=== PATIENT | female | born 1925 | race Caucasian/White ===

== ENCOUNTER 2016-07-20 12:08 | Emergency (ER) | payer MEDICARE, OTHER ==
--- NOTE | 2016-07-20 13:29 | EDDOCDS ---
Nurse's Notes [facility] Name: Dahiana Pandey Age: 89 yrs Sex: Female : 1925 Arrival Date: 07/20/2016 Time: 12:08 Bed I10 / 23 Private MD: Tirso Dixon G. Diagnosis: Insomnia Presentation: 07/20 12:19 Presenting complaint: Patient states: Has chronic insomnia and takes Xanax for sleep. jo3 [facility] will not release prescription until Thursday and pt has not slept for past 2 nights. Adult Sepsis Screening: The patient does not have new or worsening altered mentation. Patient's respiratory rate is less than 22. Systolic blood pressure is greater than 100. Patient has a qSOFA score of 0- Negative Sepsis Screen. Suicide/Homicide risk assessment- the patient denies having any suicidal and/or homicidal ideations and does not present with any other emotional, behavioral or mental health complaints. Status: Patient is not a automotive service manager or dependent. Transition of care: patient was not received from another setting of care. 12:19 Acuity: SKYLAR Level 5 jo3 12:19 Method Of Arrival: Walkin/Carried/Asstd jo3 Triage Assessment: 12:23 General: Appears in no apparent distress, Behavior is appropriate for age, cooperative. jo3 Neurological: No deficits noted. Level of Consciousness is awake, alert, Oriented to person, place, time. Respiratory: Airway is patent Respiratory effort is even, unlabored. Derm: Skin is pink, warm & dry. Historical: - Allergies: Benadryl; Ciprofloxacin HCl; - Home Meds: 1. atenolol 25 mg Oral tab 12.5 mg 2. hydroxyzine HCl 25 mg Oral tab nightly 3. Remeron 30 mg Oral tab 1 tab once daily 4. trazodone 50 mg Oral tab nightly 5. Xanax 0.5 mg Oral tab nightly - PMHx: insomnia; Sleep Apnea w/o CPAP; svt; Hypertension; - PSHx: Cholecystectomy; knee surgery; - Social history: Smoking status: Patient states was never smoker of tobacco. No barriers to communication noted, The patient speaks fluent Palauan, Speaks appropriately for age. - Family history: Not pertinent. - : The pt / caregiver states he / she is not on anticoagulants. Home medication list is obtained from the patient. - Exposure Risk Screening:: None identified. Screenin:26 Screening information is obtained from the patient. Primary language is Palauan. Fall dls risk: No risks identified. Assistance ADL's: requires no assistance with activities of daily living. Abuse/DV Screen: The patient / caregiver reports he/she is: not in a situation that causes fear, pain or injury. Nutritional screening: No deficits noted. Advance Directives: Currently, there is no health care proxy. There is no active DNR order. There is no living will. There is no Power of Oil Field Laborer. Advance directive information has not previously been placed in an [facility] medical record. home support is adequate. Assessment: 13:25 General: Appears in no apparent distress, well developed, well nourished, well groomed, dls Behavior is cooperative. Pain: Denies pain. Awake, alert, oriented. Skin warm and dry. Moves all extremities. Bilateral breath sounds clear. Respirations unlabored. Abdomen soft, non-tender. No apparent distress. The patient / caregiver is instructed regarding the plan of care and ED course. Vital Signs: 12:11 BP 193 / 76 LA Sitting (auto/reg); Pulse 68 LA; Resp 18 S; Temp 97.5(O); Pulse Ox 99% mt4 on R/A; Weight 80.74 kg (R); Height 5 ft. 5 in. (165.10 cm) (R); Pain 0/10; 12:11 Body Mass Index 29.62 (80.74 kg, 165.10 cm) oh4 Vitals: 12:11 Log In Time: July 20, 2016 at 12:08. oh4 ED Course: 12:10 Patient visited by Trang Killian. mt4 12:10 Tirso Dixon is Private Physician. mt4 12:10 Patient moved to Waiting mt4 12:12 Patient moved to Pre RCE mt4 12:21 Triage Initiated jo3 12:24 Patient visited by January Hatfield RN. jo3 12:27 Patient moved to I10 / 23 pml 12:28 [facility] le 12:29 Patient visited by Alberta Narayan FNP. le 12:29 Patient visited by Alberta Narayan FNP. le 12:53 Tirso Dixon is Referral Physician. le 13:06 [facility] Payment Agreement was scanned into [employer] and attached to record. mpb 13:26 Patient has correct armband on for positive identification. Bed in low position. Call dls light in reach. 13:27 No IV's were initiated during this patient's visit. No procedures done that require dls assistance. Order Results: There are currently no results for this order. Outcome: 12:53 Discharge ordered by Provider. le 13:26 The following High Risk Discharge criteria are identified: None. Discharged to home dls ambulatory. Condition: stable. Discharge instructions given to patient, Instructed on discharge instructions, follow up and referral plans. medication usage, Demonstrated understanding of instructions, medications, Pt was receptive of discharge instructions/ teaching. Prescriptions given X 1. No special radiology studies were completed. 13:28 Discharge Assessment: Patient awake, alert and oriented x 3. No cognitive and/or dls functional deficits noted. Patient verbalized understanding of disposition instructions. patient administered narcotics - no. The following High Risk Discharge criteria are identified: None. Discharged to home ambulatory. Property sent home with patient. 13:28 Patient left the ED. dls Signatures: Melissa Simpson, RN RN January PaigeRN RN jo3 Alberta Narayan, CATALOGUE ILLUSTRATOR CATALOGUE ILLUSTRATOR Trang Gutiérrez oh4 Belen Kemp,RN RN Fracisco Henry, Reg Reg mpb MTDD
--- NOTE | 2016-07-20 13:29 | EDDOCDS ---
Physician Documentation [facility] Name: Dahiana Pandey Age: 89 yrs Sex: Female : 1925 Arrival Date: 07/20/2016 Time: 12:08 Bed I1 Private MD: Tirso Dixon G. Disposition: 07/20 13:02 Critical Care: Critical care not applicable. le Disposition: 07/20/16 12:53 Discharged to Home/Self Care. Impression: Insomnia. - Condition is Stable. - Discharge Instructions: Insomnia, Medicine Refill at the Emergency Department. - Prescriptions for Ambien CR 12.5 mg Oral Tablet, Multiphasic Release - take 1 tablet by ORAL route At bedtime As needed at bedtime; 2 tablet. - Medication Reconciliation, Local Pharmacy Hours form. - Follow up: Tirso Dixon; When: Call to arrange an appointment; Reason: Recheck today's complaints, Continuance of care. - Problem is an acute exacerbation. - Symptoms are unchanged. - Notes: You are overusing your Xanax, that is what has caused this crisis. Please reconsider using CPAP for your sleep apnea. It may be difficult to get used to sleeping with a mask, but your sleep patterns will improve and you will get full nights' sleep. The ER cannot be used for medication refills, especially when you run out of medications prior to the "scheduled" date. If you need to increase your medications, you need to have this controlled with your doctor Historical: - Allergies: Benadryl; Ciprofloxacin HCl; - Home Meds: 1. atenolol 25 mg Oral tab 12.5 mg 2. hydroxyzine HCl 25 mg Oral tab nightly 3. Remeron 30 mg Oral tab 1 tab once daily 4. trazodone 50 mg Oral tab nightly 5. Xanax 0.5 mg Oral tab nightly - PMHx: insomnia; Sleep Apnea w/o CPAP; svt; Hypertension; - PSHx: Cholecystectomy; knee surgery; - Social history: Smoking status: Patient states was never smoker of tobacco. No barriers to communication noted, The patient speaks fluent Guamanian, Speaks appropriately for age. - Family history: Not pertinent. - : The pt / caregiver states he / she is not on anticoagulants. Home medication list is obtained from the patient. - Exposure Risk Screening:: None identified. Vital Signs: 12:11 BP 193 / 76 LA Sitting (auto/reg); Pulse 68 LA; Resp 18 S; Temp 97.5(O); Pulse Ox 99% mt4 on R/A; Weight 80.74 kg / 178 lbs (R); Height 5 ft. 5 in. (165.10 cm) (R); Pain 0/10; 12:11 Body Mass Index 29.62 (80.74 kg, 165.10 cm) mt4 MDM: 13:05 Financial registration complete. mpb 13:06 [facility] Payment Agreement was scanned into [employer] and attached to record. mpb Signatures: Melissa Simpson RN RN January PaigeRN RN jo3 Alberta Narayan, BUILDING SERVICE WORKER BUILDING SERVICE WORKER Fracisco Del Valle, Reg Reg mpb The chart was reviewed and I authenticate all verbal orders and agree with the evaluation and treatment provided.Attachments: 13:06 [facility] Payment Agreement mpb MTDD
--- NOTE | 2016-07-22 14:29 | EDDOCDS ---
Nurse's Notes [facility] Name: Dahiana Pandey Age: 89 yrs Sex: Female : 1925 Arrival Date: 07/20/2016 Time: 12:08 Bed I10 / 23 Private MD: Tirso Dixon G. Diagnosis: Insomnia Presentation: 07/20 12:19 Presenting complaint: Patient states: Has chronic insomnia and takes Xanax for sleep. jo3 [facility] will not release prescription until Thursday and pt has not slept for past 2 nights. Adult Sepsis Screening: The patient does not have new or worsening altered mentation. Patient's respiratory rate is less than 22. Systolic blood pressure is greater than 100. Patient has a qSOFA score of 0- Negative Sepsis Screen. Suicide/Homicide risk assessment- the patient denies having any suicidal and/or homicidal ideations and does not present with any other emotional, behavioral or mental health complaints. 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 Transition of care: patient was not received from another setting of care. 12:19 Acuity: SKYLAR Level 5 jo3 12:19 Method Of Arrival: Walkin/Carried/Asstd jo3 Triage Assessment: 12:23 General: Appears in no apparent distress, Behavior is appropriate for age, cooperative. jo3 Neurological: No deficits noted. Level of Consciousness is awake, alert, Oriented to person, place, time. Respiratory: Airway is patent Respiratory effort is even, unlabored. Derm: Skin is pink, warm & dry. Historical: - Allergies: Benadryl; Ciprofloxacin HCl; - Home Meds: 1. atenolol 25 mg Oral tab 12.5 mg 2. hydroxyzine HCl 25 mg Oral tab nightly 3. Remeron 30 mg Oral tab 1 tab once daily 4. trazodone 50 mg Oral tab nightly 5. Xanax 0.5 mg Oral tab nightly - PMHx: insomnia; Sleep Apnea w/o CPAP; svt; Hypertension; - PSHx: Cholecystectomy; knee surgery; - Social history: Smoking status: Patient states was never smoker of tobacco. No barriers to communication noted, The patient speaks fluent Tristanian, Speaks appropriately for age. - Family history: Not pertinent. - : The pt / caregiver states he / she is not on anticoagulants. Home medication list is obtained from the patient. - Exposure Risk Screening:: None identified. Screenin:26 Screening information is obtained from the patient. Primary language is Tristanian. Fall dls risk: No risks identified. Assistance ADL's: requires no assistance with activities of daily living. Abuse/DV Screen: The patient / caregiver reports he/she is: not in a situation that causes fear, pain or injury. Nutritional screening: No deficits noted. Advance Directives: Currently, there is no health care proxy. There is no active DNR order. There is no living will. There is no Power of Chain Sales Consultant. Advance directive information has not previously been placed in an [facility] medical record. home support is adequate. Assessment: 13:25 General: Appears in no apparent distress, well developed, well nourished, well groomed, dls Behavior is cooperative. Pain: Denies pain. Awake, alert, oriented. Skin warm and dry. Moves all extremities. Bilateral breath sounds clear. Respirations unlabored. Abdomen soft, non-tender. No apparent distress. The patient / caregiver is instructed regarding the plan of care and ED course. Vital Signs: 12:11 BP 193 / 76 LA Sitting (auto/reg); Pulse 68 LA; Resp 18 S; Temp 97.5(O); Pulse Ox 99% mt4 on R/A; Weight 80.74 kg (R); Height 5 ft. 5 in. (165.10 cm) (R); Pain 0/10; 12:11 Body Mass Index 29.62 (80.74 kg, 165.10 cm) de4 Vitals: 12:11 Log In Time: July 20, 2016 at 12:08. de4 ED Course: 12:10 Patient visited by Trang Killian. mt4 12:10 Tirso Dixon is Private Physician. mt4 12:10 Patient moved to Waiting mt4 12:12 Patient moved to Pre RCE mt4 12:21 Triage Initiated jo3 12:24 Patient visited by January Hatfield RN. jo3 12:27 Patient moved to I10 / 23 pml 12:28 [facility] le 12:29 Patient visited by Alberta Narayan FNP. le 12:29 Patient visited by Alberta Narayan FNP. le 12:53 Tirso Dixon is Referral Physician. le 13:06 [facility] Payment Agreement was scanned into [employer] and attached to record. mpb 13:26 Patient has correct armband on for positive identification. Bed in low position. Call dls light in reach. 13:27 No IV's were initiated during this patient's visit. No procedures done that require dls assistance. 22:19 T-Sheet-- Draft Copy was scanned into [employer] and attached to record. klr Order Results: There are currently no results for this order. Outcome: 12:53 Discharge ordered by Provider. le 13:26 The following High Risk Discharge criteria are identified: None. Discharged to home dls ambulatory. Condition: stable. Discharge instructions given to patient, Instructed on discharge instructions, follow up and referral plans. medication usage, Demonstrated understanding of instructions, medications, Pt was receptive of discharge instructions/ teaching. Prescriptions given X 1. No special radiology studies were completed. 13:28 Discharge Assessment: Patient awake, alert and oriented x 3. No cognitive and/or dls functional deficits noted. Patient verbalized understanding of disposition instructions. patient administered narcotics - no. The following High Risk Discharge criteria are identified: None. Discharged to home ambulatory. Property sent home with patient. 13:28 Patient left the ED. dls Signatures: Melissa Simpson, January Hall RN, RN RN [email or web address] Alberta Narayan FNP FNP le Thomas, Melissa mt4 Belen Kemp RN RN Fracisco Henry, Reg Reg mpb Verónica Suarez klr Chart Complete MTDD
--- NOTE | 2016-07-22 14:29 | EDDOCDS ---
Physician Documentation [facility] Name: Dahiana Pandey Age: 89 yrs Sex: Female : 1925 Arrival Date: 07/20/2016 Time: 12:08 Bed I1 Private MD: Tirso Dixon G. Disposition: 07/20 13:02 Critical Care: Critical care not applicable. le Disposition: 07/20/16 12:53 Discharged to Home/Self Care. Impression: Insomnia. - Condition is Stable. - Discharge Instructions: Insomnia, Medicine Refill at the Emergency Department. - Prescriptions for Ambien CR 12.5 mg Oral Tablet, Multiphasic Release - take 1 tablet by ORAL route At bedtime As needed at bedtime; 2 tablet. - Medication Reconciliation, Local Pharmacy Hours form. - Follow up: Tirso Dixon; When: Call to arrange an appointment; Reason: Recheck today's complaints, Continuance of care. - Problem is an acute exacerbation. - Symptoms are unchanged. - Notes: You are overusing your Xanax, that is what has caused this crisis. Please reconsider using CPAP for your sleep apnea. It may be difficult to get used to sleeping with a mask, but your sleep patterns will improve and you will get full nights' sleep. The ER cannot be used for medication refills, especially when you run out of medications prior to the "scheduled" date. If you need to increase your medications, you need to have this controlled with your doctor Historical: - Allergies: Benadryl; Ciprofloxacin HCl; - Home Meds: 1. atenolol 25 mg Oral tab 12.5 mg 2. hydroxyzine HCl 25 mg Oral tab nightly 3. Remeron 30 mg Oral tab 1 tab once daily 4. trazodone 50 mg Oral tab nightly 5. Xanax 0.5 mg Oral tab nightly - PMHx: insomnia; Sleep Apnea w/o CPAP; svt; Hypertension; - PSHx: Cholecystectomy; knee surgery; - Social history: Smoking status: Patient states was never smoker of tobacco. No barriers to communication noted, The patient speaks fluent Singaporean, Speaks appropriately for age. - Family history: Not pertinent. - : The pt / caregiver states he / she is not on anticoagulants. Home medication list is obtained from the patient. - Exposure Risk Screening:: None identified. Vital Signs: 12:11 BP 193 / 76 LA Sitting (auto/reg); Pulse 68 LA; Resp 18 S; Temp 97.5(O); Pulse Ox 99% mt4 on R/A; Weight 80.74 kg / 178 lbs (R); Height 5 ft. 5 in. (165.10 cm) (R); Pain 0/10; 12:11 Body Mass Index 29.62 (80.74 kg, 165.10 cm) mt4 MDM: 13:05 Financial registration complete. mpb 13:06 [facility] Payment Agreement was scanned into [employer] and attached to record. mpb 22:19 T-Sheet-- Draft Copy was scanned into [employer] and attached to record. klr Signatures: Melissa Simpson RN RN January Paige RN RN jo3 Alberta Narayan, NURSE OUTREACH CASE MANAGER NURSE OUTREACH CASE MANAGER Fracisco Del Valle, Reg Reg mpVerónica Eason The chart was reviewed and I authenticate all verbal orders and agree with the evaluation and treatment provided.Attachments: 13:06 [facility] Payment Agreement [facility] 22:19 T-Sheet-- Draft Copy klr Chart Complete MTDD
--- NOTE | 2016-07-22 14:29 | EDDOCDS ---
Physician Documentation [facility] Name: Dahiana Pandey Age: 89 yrs Sex: Female : 1925 Arrival Date: 07/20/2016 Time: 12:08 Bed I1 Private MD: Tirso Dixon G. Disposition: 07/20 13:02 Critical Care: Critical care not applicable. le Disposition: 07/20/16 12:53 Discharged to Home/Self Care. Impression: Insomnia. - Condition is Stable. - Discharge Instructions: Insomnia, Medicine Refill at the Emergency Department. - Prescriptions for Ambien CR 12.5 mg Oral Tablet, Multiphasic Release - take 1 tablet by ORAL route At bedtime As needed at bedtime; 2 tablet. - Medication Reconciliation, Local Pharmacy Hours form. - Follow up: Tirso Dixon; When: Call to arrange an appointment; Reason: Recheck today's complaints, Continuance of care. - Problem is an acute exacerbation. - Symptoms are unchanged. - Notes: You are overusing your Xanax, that is what has caused this crisis. Please reconsider using CPAP for your sleep apnea. It may be difficult to get used to sleeping with a mask, but your sleep patterns will improve and you will get full nights' sleep. The ER cannot be used for medication refills, especially when you run out of medications prior to the "scheduled" date. If you need to increase your medications, you need to have this controlled with your doctor Historical: - Allergies: Benadryl; Ciprofloxacin HCl; - Home Meds: 1. atenolol 25 mg Oral tab 12.5 mg 2. hydroxyzine HCl 25 mg Oral tab nightly 3. Remeron 30 mg Oral tab 1 tab once daily 4. trazodone 50 mg Oral tab nightly 5. Xanax 0.5 mg Oral tab nightly - PMHx: insomnia; Sleep Apnea w/o CPAP; svt; Hypertension; - PSHx: Cholecystectomy; knee surgery; - Social history: Smoking status: Patient states was never smoker of tobacco. No barriers to communication noted, The patient speaks fluent Guinean, Speaks appropriately for age. - Family history: Not pertinent. - : The pt / caregiver states he / she is not on anticoagulants. Home medication list is obtained from the patient. - Exposure Risk Screening:: None identified. Vital Signs: 12:11 BP 193 / 76 LA Sitting (auto/reg); Pulse 68 LA; Resp 18 S; Temp 97.5(O); Pulse Ox 99% mt4 on R/A; Weight 80.74 kg / 178 lbs (R); Height 5 ft. 5 in. (165.10 cm) (R); Pain 0/10; 12:11 Body Mass Index 29.62 (80.74 kg, 165.10 cm) mt4 MDM: 13:05 Financial registration complete. mpb 13:06 [facility] Payment Agreement was scanned into [employer] and attached to record. mpb 22:19 T-Sheet-- Draft Copy was scanned into [employer] and attached to record. klr Signatures: Melissa Simpson RN RN January Paige RN RN jo3 Alberta Narayan, CUSTOMER MARKETING ASSISTANT CUSTOMER MARKETING ASSISTANT Fracisco Del Valle, Reg Reg mpVerónica Eason The chart was reviewed and I authenticate all verbal orders and agree with the evaluation and treatment provided.Attachments: 13:06 [facility] Payment Agreement [facility] 22:19 T-Sheet-- Draft Copy klr Chart Complete MTDD
== END 2016-07-20 13:28 | disposition home or self-care (01) ==
LOC: M ED 12:08
DX: G47.00 Insomnia, unspecified (principal); Z76.0 Encounter for issue of repeat prescription; G47.30 Sleep apnea, unspecified; I10 Essential (primary) hypertension; I47.1 Supraventricular tachycardia; Z79.899 Other long term (current) drug therapy; Z88.1 Allergy status to other antibiotic agents; Z88.8 Allergy status to other drugs, medicaments and biological substances

== ENCOUNTER 2016-08-06 02:39 | Emergency (ER) | payer MEDICARE, OTHER ==
--- NOTE | 2016-08-06 03:55 | EDDOCDS ---
Nurse's Notes [facility] Name: Dahiana Pandey Age: 89 yrs Sex: Female : 1925 Arrival Date: 08/06/2016 Time: 02:39 Bed 17 Private MD: Diagnosis: Insomnia;Essential (primary) hypertension;Sleep apnea Presentation: 08/06 02:45 Presenting complaint: Patient states: she did not sleep all night last night, states nn1 "my medicine stopped working on me". States she was seen by PCP yesterday and given a different medication. Reports she did not sleep tonight either, states the new medication "has me feeling weird". Adult Sepsis Screening: The patient does not have new or worsening altered mentation. Patient's respiratory rate is less than 22. Systolic blood pressure is greater than 100. Patient has a qSOFA score of 0- Negative Sepsis Screen. Suicide/Homicide risk assessment- the patient denies having any suicidal and/or homicidal ideations and does not present with any other emotional, behavioral or mental health complaints. 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 Transition of care: patient was not received from another setting of care. 02:45 Acuity: SKYLAR Level 4 nn1 02:45 Method Of Arrival: Wheelchair nn1 Triage Assessment: 02:51 General: Appears in no apparent distress, Behavior is appropriate for age, cooperative. nn1 Pain: Denies pain. The patient is triaged at the bedside. See Assessment in Nurses Notes section of ED record. Neurological: Level of Consciousness is awake, alert, Oriented to person, place, time. Respiratory: Airway is patent Respiratory effort is even, unlabored, Respiratory pattern is regular, symmetrical. Derm: Skin is pink, warm & dry. Historical: - Allergies: Benadryl; Ciprofloxacin HCl; - Home Meds: 1. temazepam 7.5 mg Oral cap 1 cap once daily started 08/05/16 2. atenolol 25 mg Oral tab 0.5 tab 3. Remeron 30 mg Oral tab 1 tab once daily 4. Xanax 0.5 mg Oral tab nightly Discontinued 08/05/16 - PMHx: Hypertension; Sleep Apnea w/o CPAP; insomnia; svt; - PSHx: Cholecystectomy; Knee surgery- Left; - The history from nurses notes was reviewed: and I agree with what is documented. - Social history: Smoking status: Patient states was never smoker of tobacco. No barriers to communication noted, The patient speaks fluent Portuguese, Speaks appropriately for age. - : The pt / caregiver states he / she is not on anticoagulants. Home medication list is obtained from the patient. - Hospitalizations: : No recent hospitalization is reported. - Exposure Risk Screening:: None identified. - Immunization history:: All immunizations up-to-date. - Family history: Not pertinent. - Social history:: the patient is a non-smoker, the patient does not drink alcohol. Screenin:54 Screening information is obtained from the patient. Fall risk: At risk due to prior nn1 history of falls. Assistance ADL's: requires no assistance with activities of daily living. Abuse/DV Screen: The patient / caregiver reports he/she is: not in a situation that causes fear, pain or injury. Nutritional screening: No deficits noted. Advance Directives: Currently, there is no health care proxy. There is no active DNR order. home support is adequate. Assessment: 03:11 General: Appears in no apparent distress, comfortable, Behavior is appropriate for age, kas2 cooperative. Pain: Denies pain. Neurological: Level of Consciousness is awake, alert, Oriented to person, place, time. Cardiovascular: Capillary refill < 3 seconds Heart tones S1 S2 present Rhythm is regular. Respiratory: Airway is patent Respiratory effort is even, unlabored, Respiratory pattern is regular, symmetrical, Breath sounds are clear bilaterally. Derm: Skin is intact, Skin is dry, Skin is pink, warm & dry. Skin temperature is warm. 03:49 General: Patient laying in bed. No apparent distress noted. Appears comfortable. Denies kas2 pain or discomfort at this time. Call chavarria within reach. Will continue to monitor.. Vital Signs: 02:53 BP 146 / 97; Pulse 75; Resp 18; Temp 98.5(TE); Pulse Ox 96% on R/A; Weight 79.38 kg; nn1 Height 5 ft. 5 in. (165.10 cm); Pain 0/10; 03:52 BP 142 / 89; Pulse 72; Resp 18; Temp 98.0(O); Pulse Ox 95% ; Pain 0/10; kas2 02:53 Body Mass Index 29.12 (79.38 kg, 165.10 cm) nn1 Vitals: 02:53 Log In Time: August 06, 2016 at 02:39. nn1 ED Course: 02:41 Patient visited by Dusty Mazariegos, Reg. pm4 02:41 Patient moved to Waiting pm4 02:46 Triage Initiated nn1 02:55 Kacie Kirkland RN is Primary Nurse. nn1 02:55 Patient moved to 17 nn1 03:10 Rob Arrieta MD is Attending Physician. pc 03:11 Patient visited by Kacie Kirkland RN. kas2 03:13 Patient visited by Kacie Kirkland RN. kas2 03:26 Patient visited by Rob Arrieta MD. pc 03:42 Referral list, As provided by [facility] is Referral Physician. pc 03:42 Rohit Underwood MD is Referral Physician. pc 03:51 [facility] Payment Agreement was scanned into [employer] and attached to record. hs2 03:53 Patient visited by Kacie Kirkland RN. kas2 03:53 The patient / caregiver is instructed regarding the plan of care and ED course. kas2 03:53 No IV's were initiated during this patient's visit. No procedures done that require kas2 assistance. Order Results: There are currently no results for this order. Outcome: 03:42 Discharge ordered by Provider. pc 03:53 Discharge Assessment: patient administered narcotics - no. The following High Risk kas2 Discharge criteria are identified: None. Discharged to home via wheelchair. Condition: good Condition: stable Condition: improved. No special radiology studies were completed. Property :Personal belongings accompany Pt. 03:54 Patient left the ED. kas2 Signatures: Rob Arrieta MD MD pc Nunez, Nikkole, RN RN nn1 Ivette Bauer, Reg Reg hs2 Kacie Kirkland RN RN kas2 Dusty Mazariegos, Reg Reg pm4 MTDD
--- NOTE | 2016-08-06 03:55 | EDDOCDS ---
Physician Documentation [facility] Name: Dahiana Pandey Age: 89 yrs Sex: Female : 1925 Arrival Date: 08/06/2016 Time: 02:39 Bed 17 Private MD: Disposition: 08/06 03:41 Critical Care: Critical care not applicable. pc Disposition: 08/06/16 03:42 Discharged to Home/Self Care. Impression: Insomnia, Essential (primary) hypertension, Sleep apnea. - Condition is Stable. - Discharge Instructions: Insomnia. - Medication Reconciliation, Local Pharmacy Hours form. - Follow up: As provided by [facility] Referral list; When: Call to arrange an appointment; Reason: To establish care. Follow up: Rohit Underwood; When: As previously arranged; Reason: Continuance of care. - Problem is chronic. - Symptoms are unchanged. HPI: 03:26 This 89 yrs old Female presents to ER via Wheelchair with complaints of pc Insomnia. 03:26 The history is obtained from the patient. She has had 20+ years of insomnia, with pc increasing doses of meds and medication trials without effect, She has sleep apnea but will not use her CPAP. She presents requesting an appointment with Dr. Cristopher Cook, Psychiatry, because her PCP told her it might help. She repeatedly states she does not want any new medications. She simply states she has called many Psychiatrists and has been told the wait lists are very long, which makes her more anxious. She denies any depression/SI/HI. The patient has experienced similar episodes in the past, chronically. The patient has been recently seen by their primary care provider, 2 day(s) ago, The patient has been recently seen at the [facility], last week. Historical: - Allergies: Benadryl; Ciprofloxacin HCl; - Home Meds: 1. temazepam 7.5 mg Oral cap 1 cap once daily started 08/05/16 2. atenolol 25 mg Oral tab 0.5 tab 3. Remeron 30 mg Oral tab 1 tab once daily 4. Xanax 0.5 mg Oral tab nightly Discontinued 08/05/16 - PMHx: Hypertension; Sleep Apnea w/o CPAP; insomnia; svt; - PSHx: Cholecystectomy; Knee surgery- Left; - The history from nurses notes was reviewed: and I agree with what is documented. - Social history: Smoking status: Patient states was never smoker of tobacco. No barriers to communication noted, The patient speaks fluent Welsh, Speaks appropriately for age. - : The pt / caregiver states he / she is not on anticoagulants. Home medication list is obtained from the patient. - Hospitalizations: : No recent hospitalization is reported. - Exposure Risk Screening:: None identified. - Immunization history:: All immunizations up-to-date. - Family history: Not pertinent. - Social history:: the patient is a non-smoker, the patient does not drink alcohol. ROS: 03:26 All systems are negative except as listed. pc Exam: 03:26 General Appearance: no acute distress, alert. pc 03:26 EENT: normal eye inspection, ears, nose and throat normal, pharynx normal, mucous membranes moist 03:26 Neck: The exam reveals no acute abnormalities. ROM is normal and painless. No nuchal rigidity is noted.. 03:26 Respiratory: no respiratory distress, normal breath sounds. 03:26 CVS: regular pulse rate, regular rhythm, normal S1 and S2, no murmurs, strong peripheral pulses. 03:26 Abdomen: soft, non-tender, no organomegaly, normal bowel sounds. 03:26 Back: normal inspection. 03:26 Skin: skin color is normal, warm, dry. 03:26 Extremities: The extremities have a grossly normal appearance. 03:26 Neuro: oriented x 3, cranial nerves normal as tested, no motor deficits, no sensory deficits. 03:26 Psych: normal mood, affect is appropriate. Vital Signs: 02:53 BP 146 / 97; Pulse 75; Resp 18; Temp 98.5(TE); Pulse Ox 96% on R/A; Weight 79.38 kg / nn1 175 lbs; Height 5 ft. 5 in. (165.10 cm); Pain 0/10; 03:52 BP 142 / 89; Pulse 72; Resp 18; Temp 98.0(O); Pulse Ox 95% ; Pain 0/10; kas2 02:53 Body Mass Index 29.12 (79.38 kg, 165.10 cm) nn1 MDM: 03:26 Data reviewed: The patient's [facility] OFF[employer] PRESS OPERATOR HELPER records were accessed, reference # [id number]. Other pc consultation: The ED sample shoe inspector and reworker was notified and will evaluate the patient. 03:41 Differential Diagnosis: insomnia. Plan: PFS to see, per her request. Data reviewed: old medical records, vital signs, nurses notes. Test interpretation: none. The patient has been re-examined and re-evaluated. The clinical presentation did not require any ED treatment or interventions. Disposition: The historical points, examination findings, and any diagnostic results supporting the provided diagnosis, were discussed with the patient or legal guardian. The need for outpatient follow up with the provider listed on their discharge instructions was discussed. They were encouraged to return to [facility], or the nearest ED, if symptoms worsen/persist, or for any other questions/concerns. 03:47 Financial registration complete. hs2 03:51 [facility] Payment Agreement was scanned into [employer] and attached to record. hs2 Signatures: Rob Arrieta MD MD Brianna Adhikari,RN RN nn1 Ivette Bauer, Reg Reg hs2 Kacie KirklandRN RN kas2 The chart was reviewed and I authenticate all verbal orders and agree with the evaluation and treatment provided.Attachments: 03:51 [facility] Payment Agreement hs2 MTDD
--- NOTE | 2016-08-08 04:55 | EDDOCDS ---
Nurse's Notes [facility] Name: Dahiana Pandey Age: 89 yrs Sex: Female : 1925 Arrival Date: 08/06/2016 Time: 02:39 Bed 17 Private MD: Diagnosis: Insomnia;Essential (primary) hypertension;Sleep apnea Presentation: 08/06 02:45 Presenting complaint: Patient states: she did not sleep all night last night, states nn1 "my medicine stopped working on me". States she was seen by PCP yesterday and given a different medication. Reports she did not sleep tonight either, states the new medication "has me feeling weird". Adult Sepsis Screening: The patient does not have new or worsening altered mentation. Patient's respiratory rate is less than 22. Systolic blood pressure is greater than 100. Patient has a qSOFA score of 0- Negative Sepsis Screen. Suicide/Homicide risk assessment- the patient denies having any suicidal and/or homicidal ideations and does not present with any other emotional, behavioral or mental health complaints. 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 Transition of care: patient was not received from another setting of care. 02:45 Acuity: SKYLAR Level 4 nn1 02:45 Method Of Arrival: Wheelchair nn1 Triage Assessment: 02:51 General: Appears in no apparent distress, Behavior is appropriate for age, cooperative. nn1 Pain: Denies pain. The patient is triaged at the bedside. See Assessment in Nurses Notes section of ED record. Neurological: Level of Consciousness is awake, alert, Oriented to person, place, time. Respiratory: Airway is patent Respiratory effort is even, unlabored, Respiratory pattern is regular, symmetrical. Derm: Skin is pink, warm & dry. Historical: - Allergies: Benadryl; Ciprofloxacin HCl; - Home Meds: 1. temazepam 7.5 mg Oral cap 1 cap once daily started 08/05/16 2. atenolol 25 mg Oral tab 0.5 tab 3. Remeron 30 mg Oral tab 1 tab once daily 4. Xanax 0.5 mg Oral tab nightly Discontinued 08/05/16 - PMHx: Hypertension; Sleep Apnea w/o CPAP; insomnia; svt; - PSHx: Cholecystectomy; Knee surgery- Left; - The history from nurses notes was reviewed: and I agree with what is documented. - Social history: Smoking status: Patient states was never smoker of tobacco. No barriers to communication noted, The patient speaks fluent Tajik, Speaks appropriately for age. - : The pt / caregiver states he / she is not on anticoagulants. Home medication list is obtained from the patient. - Hospitalizations: : No recent hospitalization is reported. - Exposure Risk Screening:: None identified. - Immunization history:: All immunizations up-to-date. - Family history: Not pertinent. - Social history:: the patient is a non-smoker, the patient does not drink alcohol. Screenin:54 Screening information is obtained from the patient. Fall risk: At risk due to prior nn1 history of falls. Assistance ADL's: requires no assistance with activities of daily living. Abuse/DV Screen: The patient / caregiver reports he/she is: not in a situation that causes fear, pain or injury. Nutritional screening: No deficits noted. Advance Directives: Currently, there is no health care proxy. There is no active DNR order. home support is adequate. Assessment: 03:11 General: Appears in no apparent distress, comfortable, Behavior is appropriate for age, kas2 cooperative. Pain: Denies pain. Neurological: Level of Consciousness is awake, alert, Oriented to person, place, time. Cardiovascular: Capillary refill < 3 seconds Heart tones S1 S2 present Rhythm is regular. Respiratory: Airway is patent Respiratory effort is even, unlabored, Respiratory pattern is regular, symmetrical, Breath sounds are clear bilaterally. Derm: Skin is intact, Skin is dry, Skin is pink, warm & dry. Skin temperature is warm. 03:49 General: Patient laying in bed. No apparent distress noted. Appears comfortable. Denies kas2 pain or discomfort at this time. Call chavarria within reach. Will continue to monitor.. Vital Signs: 02:53 BP 146 / 97; Pulse 75; Resp 18; Temp 98.5(TE); Pulse Ox 96% on R/A; Weight 79.38 kg; nn1 Height 5 ft. 5 in. (165.10 cm); Pain 0/10; 03:52 BP 142 / 89; Pulse 72; Resp 18; Temp 98.0(O); Pulse Ox 95% ; Pain 0/10; kas2 02:53 Body Mass Index 29.12 (79.38 kg, 165.10 cm) nn1 Vitals: 02:53 Log In Time: August 06, 2016 at 02:39. nn1 ED Course: 02:41 Patient visited by Dusty Mazariegos, Reg. pm4 02:41 Patient moved to Waiting pm4 02:46 Triage Initiated nn1 02:55 Kacie Kirkland RN is Primary Nurse. nn1 02:55 Patient moved to 17 nn1 03:10 Rob Arrieta MD is Attending Physician. pc 03:11 Patient visited by Kacie Kirkland RN. kas2 03:13 Patient visited by Kacie Kirkland RN. kas2 03:26 Patient visited by Rob Arrieta MD. pc 03:42 Referral list, As provided by [facility] is Referral Physician. pc 03:42 Rohit Underwood MD is Referral Physician. pc 03:51 [facility] Payment Agreement was scanned into [employer] and attached to record. hs2 03:53 Patient visited by Kacie Kirkland RN. kas2 03:53 The patient / caregiver is instructed regarding the plan of care and ED course. kas2 03:53 No IV's were initiated during this patient's visit. No procedures done that require kas2 assistance. Order Results: There are currently no results for this order. Outcome: 03:42 Discharge ordered by Provider. pc 03:53 Discharge Assessment: patient administered narcotics - no. The following High Risk kas2 Discharge criteria are identified: None. Discharged to home via wheelchair. Condition: good Condition: stable Condition: improved. No special radiology studies were completed. Property :Personal belongings accompany Pt. 03:54 Patient left the ED. kas2 Signatures: Rob Arrieta MD MD pc Nunez, Nikkole, RN RN nn1 Ivette Bauer, Reg Reg hs2 Kacie Kirkland RN RN kas2 Dusty Mazariegos, Reg Reg pm4 Chart Complete MTDD
--- NOTE | 2016-08-08 04:55 | EDDOCDS ---
Physician Documentation [facility] Name: Dahiana Pandey Age: 89 yrs Sex: Female : 1925 Arrival Date: 08/06/2016 Time: 02:39 Bed 17 Private MD: Disposition: 08/06 03:41 Critical Care: Critical care not applicable. pc Disposition: 08/06/16 03:42 Discharged to Home/Self Care. Impression: Insomnia, Essential (primary) hypertension, Sleep apnea. - Condition is Stable. - Discharge Instructions: Insomnia. - Medication Reconciliation, Local Pharmacy Hours form. - Follow up: As provided by [facility] Referral list; When: Call to arrange an appointment; Reason: To establish care. Follow up: Rohit Underwood; When: As previously arranged; Reason: Continuance of care. - Problem is chronic. - Symptoms are unchanged. HPI: 03:26 This 89 yrs old Female presents to ER via Wheelchair with complaints of pc Insomnia. 03:26 The history is obtained from the patient. She has had 20+ years of insomnia, with pc increasing doses of meds and medication trials without effect, She has sleep apnea but will not use her CPAP. She presents requesting an appointment with Dr. Cristopher Cook, Psychiatry, because her PCP told her it might help. She repeatedly states she does not want any new medications. She simply states she has called many Psychiatrists and has been told the wait lists are very long, which makes her more anxious. She denies any depression/SI/HI. The patient has experienced similar episodes in the past, chronically. The patient has been recently seen by their primary care provider, 2 day(s) ago, The patient has been recently seen at the [facility], last week. Historical: - Allergies: Benadryl; Ciprofloxacin HCl; - Home Meds: 1. temazepam 7.5 mg Oral cap 1 cap once daily started 08/05/16 2. atenolol 25 mg Oral tab 0.5 tab 3. Remeron 30 mg Oral tab 1 tab once daily 4. Xanax 0.5 mg Oral tab nightly Discontinued 08/05/16 - PMHx: Hypertension; Sleep Apnea w/o CPAP; insomnia; svt; - PSHx: Cholecystectomy; Knee surgery- Left; - The history from nurses notes was reviewed: and I agree with what is documented. - Social history: Smoking status: Patient states was never smoker of tobacco. No barriers to communication noted, The patient speaks fluent Portuguese, Speaks appropriately for age. - : The pt / caregiver states he / she is not on anticoagulants. Home medication list is obtained from the patient. - Hospitalizations: : No recent hospitalization is reported. - Exposure Risk Screening:: None identified. - Immunization history:: All immunizations up-to-date. - Family history: Not pertinent. - Social history:: the patient is a non-smoker, the patient does not drink alcohol. ROS: 03:26 All systems are negative except as listed. pc Exam: 03:26 General Appearance: no acute distress, alert. pc 03:26 EENT: normal eye inspection, ears, nose and throat normal, pharynx normal, mucous membranes moist 03:26 Neck: The exam reveals no acute abnormalities. ROM is normal and painless. No nuchal rigidity is noted.. 03:26 Respiratory: no respiratory distress, normal breath sounds. 03:26 CVS: regular pulse rate, regular rhythm, normal S1 and S2, no murmurs, strong peripheral pulses. 03:26 Abdomen: soft, non-tender, no organomegaly, normal bowel sounds. 03:26 Back: normal inspection. 03:26 Skin: skin color is normal, warm, dry. 03:26 Extremities: The extremities have a grossly normal appearance. 03:26 Neuro: oriented x 3, cranial nerves normal as tested, no motor deficits, no sensory deficits. 03:26 Psych: normal mood, affect is appropriate. Vital Signs: 02:53 BP 146 / 97; Pulse 75; Resp 18; Temp 98.5(TE); Pulse Ox 96% on R/A; Weight 79.38 kg / nn1 175 lbs; Height 5 ft. 5 in. (165.10 cm); Pain 0/10; 03:52 BP 142 / 89; Pulse 72; Resp 18; Temp 98.0(O); Pulse Ox 95% ; Pain 0/10; kas2 02:53 Body Mass Index 29.12 (79.38 kg, 165.10 cm) nn1 MDM: 03:26 Data reviewed: The patient's [facility] AUTOMOTIVE INSTRUCTOR records were accessed, reference # [id number]. Other pc consultation: The ED dry transfer worker was notified and will evaluate the patient. 03:41 Differential Diagnosis: insomnia. Plan: PFS to see, per her request. Data reviewed: old medical records, vital signs, nurses notes. Test interpretation: none. The patient has been re-examined and re-evaluated. The clinical presentation did not require any ED treatment or interventions. Disposition: The historical points, examination findings, and any diagnostic results supporting the provided diagnosis, were discussed with the patient or legal guardian. The need for outpatient follow up with the provider listed on their discharge instructions was discussed. They were encouraged to return to [facility], or the nearest ED, if symptoms worsen/persist, or for any other questions/concerns. 03:47 Financial registration complete. hs2 03:51 [facility] Payment Agreement was scanned into [employer] and attached to record. hs2 Signatures: Rob Arrieta MD MD Brianna Adhikari,RN RN nn1 Ivette Bauer, Reg Reg hs2 Kacie KirklandRN RN kas2 The chart was reviewed and I authenticate all verbal orders and agree with the evaluation and treatment provided.Attachments: 03:51 [facility] Payment Agreement hs2 Chart Complete MTDD
--- NOTE | 2016-08-08 04:55 | EDDOCDS ---
Physician Documentation [facility] Name: Dahiana Pandey Age: 89 yrs Sex: Female : 1925 Arrival Date: 08/06/2016 Time: 02:39 Bed 17 Private MD: Disposition: 08/06 03:41 Critical Care: Critical care not applicable. pc Disposition: 08/06/16 03:42 Discharged to Home/Self Care. Impression: Insomnia, Essential (primary) hypertension, Sleep apnea. - Condition is Stable. - Discharge Instructions: Insomnia. - Medication Reconciliation, Local Pharmacy Hours form. - Follow up: As provided by PFS Referral list; When: Call to arrange an appointment; Reason: To establish care. Follow up: Rohit Underwood; When: As previously arranged; Reason: Continuance of care. - Problem is chronic. - Symptoms are unchanged. HPI: 03:26 This 89 yrs old Female presents to ER via Wheelchair with complaints of pc Insomnia. 03:26 The history is obtained from the patient. She has had 20+ years of insomnia, with pc increasing doses of meds and medication trials without effect, She has sleep apnea but will not use her CPAP. She presents requesting an appointment with Dr. Cristopher Cook, Psychiatry, because her PCP told her it might help. She repeatedly states she does not want any new medications. She simply states she has called many Psychiatrists and has been told the wait lists are very long, which makes her more anxious. She denies any depression/SI/HI. The patient has experienced similar episodes in the past, chronically. The patient has been recently seen by their primary care provider, 2 day(s) ago, The patient has been recently seen at the [facility], last week. Historical: - Allergies: Benadryl; Ciprofloxacin HCl; - Home Meds: 1. temazepam 7.5 mg Oral cap 1 cap once daily started 08/05/16 2. atenolol 25 mg Oral tab 0.5 tab 3. Remeron 30 mg Oral tab 1 tab once daily 4. Xanax 0.5 mg Oral tab nightly Discontinued 08/05/16 - PMHx: Hypertension; Sleep Apnea w/o CPAP; insomnia; svt; - PSHx: Cholecystectomy; Knee surgery- Left; - The history from nurses notes was reviewed: and I agree with what is documented. - Social history: Smoking status: Patient states was never smoker of tobacco. No barriers to communication noted, The patient speaks fluent Mongolian, Speaks appropriately for age. - : The pt / caregiver states he / she is not on anticoagulants. Home medication list is obtained from the patient. - Hospitalizations: : No recent hospitalization is reported. - Exposure Risk Screening:: None identified. - Immunization history:: All immunizations up-to-date. - Family history: Not pertinent. - Social history:: the patient is a non-smoker, the patient does not drink alcohol. ROS: 03:26 All systems are negative except as listed. pc Exam: 03:26 General Appearance: no acute distress, alert. pc 03:26 EENT: normal eye inspection, ears, nose and throat normal, pharynx normal, mucous membranes moist 03:26 Neck: The exam reveals no acute abnormalities. ROM is normal and painless. No nuchal rigidity is noted.. 03:26 Respiratory: no respiratory distress, normal breath sounds. 03:26 CVS: regular pulse rate, regular rhythm, normal S1 and S2, no murmurs, strong peripheral pulses. 03:26 Abdomen: soft, non-tender, no organomegaly, normal bowel sounds. 03:26 Back: normal inspection. 03:26 Skin: skin color is normal, warm, dry. 03:26 Extremities: The extremities have a grossly normal appearance. 03:26 Neuro: oriented x 3, cranial nerves normal as tested, no motor deficits, no sensory deficits. 03:26 Psych: normal mood, affect is appropriate. Vital Signs: 02:53 BP 146 / 97; Pulse 75; Resp 18; Temp 98.5(TE); Pulse Ox 96% on R/A; Weight 79.38 kg / nn1 175 lbs; Height 5 ft. 5 in. (165.10 cm); Pain 0/10; 03:52 BP 142 / 89; Pulse 72; Resp 18; Temp 98.0(O); Pulse Ox 95% ; Pain 0/10; kas2 02:53 Body Mass Index 29.12 (79.38 kg, 165.10 cm) nn1 MDM: 03:26 Data reviewed: The patient's [facility] records were accessed, reference # [id number]. Other pc consultation: The ED metal storage worker was notified and will evaluate the patient. 03:41 Differential Diagnosis: insomnia. Plan: PFS to see, per her request. Data reviewed: old medical records, vital signs, nurses notes. Test interpretation: none. The patient has been re-examined and re-evaluated. The clinical presentation did not require any ED treatment or interventions. Disposition: The historical points, examination findings, and any diagnostic results supporting the provided diagnosis, were discussed with the patient or legal guardian. The need for outpatient follow up with the provider listed on their discharge instructions was discussed. They were encouraged to return to [facility], or the nearest ED, if symptoms worsen/persist, or for any other questions/concerns. 03:47 Financial registration complete. hs2 03:51 [facility] Payment Agreement was scanned into [employer] and attached to record. hs2 Signatures: Rob Arrieta MD MD Brianna Adhikari,RN RN nn1 Ivette Bauer, Reg Reg hs2 Kacie KirklandRN RN kas2 The chart was reviewed and I authenticate all verbal orders and agree with the evaluation and treatment provided.Attachments: 03:51 [facility] Payment Agreement hs2 Chart Complete MTDD
== END 2016-08-06 03:54 | disposition home or self-care (01) ==
LOC: M ED 02:39
DX: G47.00 Insomnia, unspecified (principal); G47.30 Sleep apnea, unspecified; I10 Essential (primary) hypertension; I47.1 Supraventricular tachycardia; Z79.899 Other long term (current) drug therapy; Z88.8 Allergy status to other drugs, medicaments and biological substances; Z88.1 Allergy status to other antibiotic agents

== ENCOUNTER 2016-08-08 00:51 | Emergency (ER) | payer MEDICARE, OTHER ==
[2016-08-08] MEDS ORDERED: LORazepam 2 MG/ML VIAL (J2060) As Ordered ONE (02:14)
[2016-08-08 02:33] LABS: BASO # 0.1 K/mm3 (0.0-0.2); BASO % 0.8 % (0.0-1.0); EOS # 0.2 K/mm3 (0.0-0.50); EOS % 2.2 % (0.0-3.0); LARGE UNSTAINED CELL # 0.2 K/mm3 (0.0-0.4); LARGE UNSTAINED CELL % 2.5 % (0.0-4.0); LYMPH # 1.5 K/mm3 (1.5-4.5); LYMPH % 18.6 % (24.0-44.0); MEAN CORPUSCULAR HEMOGLOBIN 30.2 pg (27.0-33.0); MEAN CORPUSCULAR HGB CONC 33.7 g/dl (32.0-36.5); MEAN CORPUSCULAR VOLUME 89.6 fl (80.0-96.0); MONO # 0.3 K/mm3 (0.0-0.8); MONO % 4.2 % (0.0-5.0); NEUTROPHILS # 5.8 K/mm3 (1.8-7.7); NEUTROPHILS % 71.7 % (36.0-66.0); PLATELET COUNT, AUTOMATED 180 k/mm3 (150-450); RED CELL DISTRIBUTION WIDTH 12.6 % (11.5-14.5); WHITE BLOOD COUNT 8.1 K/mm3 (4.0-10.0)
[2016-08-08 02:44] LABS: ANION GAP 10 MEQ/L (8-16); BLOOD UREA NITROGEN 15 MG/DL (7-18); CALCIUM LEVEL 8.9 MG/DL (8.8-10.2); CARBON DIOXIDE LEVEL 25 MEQ/L (21-32); CHLORIDE LEVEL 103 MEQ/L (98-107); CREATININE FOR GFR 0.71 MG/DL (0.55-1.02); GLOMERULAR FILTRATION RATE > 60.0 (>32); GLUCOSE, FASTING 107 MG/DL (83-110); SODIUM LEVEL 138 MEQ/L (136-145)
--- NOTE | 2016-08-08 05:18 | EDDOCDS ---
Physician Documentation [facility] Name: Dahiana Pandey Age: 89 yrs Sex: Female : 1925 Arrival Date: 08/08/2016 Time: 00:51 Bed TR2 Private MD: Disposition: 08/08/16 05:00 Discharged to Home/Self Care. Impression: Insomnia. - Condition is Stable. - Discharge Instructions: Insomnia. - Medication Reconciliation, Local Pharmacy Hours form. - Follow up: Rohit Underwood MD; When: Call to arrange an appointment; Reason: Continuance of care. - Problem is an acute exacerbation. - Symptoms have improved. Historical: - Allergies: Benadryl; Ciprofloxacin HCl; - Home Meds: 1. atenolol 25 mg Oral tab 0.5 tab 2. Remeron 30 mg Oral tab 1 tab once daily 3. temazepam 7.5 mg Oral cap 1 cap once daily started 08/05/16 4. Xanax 0.5 mg Oral tab nightly Discontinued 08/05/16 5. tramadol-acetaminophen 37.5-325 mg Oral tab 1 tabs once a day - PMHx: Hypertension; insomnia; Sleep Apnea w/o CPAP; svt; - PSHx: Cholecystectomy; Knee surgery- Left; - Social history: Smoking status: Patient states was never smoker of tobacco. No barriers to communication noted, The patient speaks fluent Amharic, Speaks appropriately for age. - Family history: Not pertinent. - : The pt / caregiver states he / she is not on anticoagulants. Home medication list is obtained from the patient. - Exposure Risk Screening:: None identified. Vital Signs: 08/08 01:08 BP 164 / 92; Pulse 72; Resp 16; Temp 96.9(O); Pulse Ox 96% ; Weight 78.02 kg / 172 lbs; jo3 Height 5 ft. 4 in. (162.56 cm); 05:12 BP 166 / 88; Pulse 77; Resp 18 S; Temp 97.3(TE); Pulse Ox 97% on R/A; af2 01:08 Body Mass Index 29.52 (78.02 kg, 162.56 cm) jo3 MDM: 01:53 IV Saline Lock ordered. mm11 01:53 NS 0.9% 1000 ml IV at 75 mL/hr continuous ordered. mm11 01:53 LORazepam 0.5 mg IVP once ordered. mm11 01:54 CBC with Diff Ordered. EDMS 01:54 BMP Ordered. EDMS 02:45 Financial registration complete. hs2 02:46 [facility] Payment Agreement was scanned into [employer] and attached to record. hs2 03:02 CBC with Diff Reviewed. mm11 03:02 BMP Reviewed. mm11 Administered Medications: 02:21 Drug: NS 0.9% 1000 ml [sodium chloride 0.9 % intravenous solution] Route: IV; Rate: 75 af2 mL/hr; Site: right hand; 05:15 Follow up: IV Status: Infusion discontinued; IV Intake: 300ml af2 02:21 Drug: LORazepam 0.5 mg [lorazepam 2 mg/mL injection solution (0.25 mL)] Route: IVP; af2 Site: right hand; 05:15 Follow up: Response: Anxiety is improved af2 Signatures: Dispatcher [employer] EDMS Lakeisha Wolf RN RN jan Helmerci, Jennifer, RN RN jo3 Alex Giraldo, DO mm11 Cordelia Butt RN RN af2 Ivette Bauer, Reg Reg hs2 The chart was reviewed and I authenticate all verbal orders and agree with the evaluation and treatment provided.Corrections: (The following items were deleted from the chart) 04:44 01:28 Consult: Laborer Pipelines ordered. af2 af2 Attachments: 02:46 [facility] Payment Agreement hs2 MTDD
--- NOTE | 2016-08-08 05:18 | EDDOCDS ---
Nurse's Notes [facility] Name: Dahiana Pandey Age: 89 yrs Sex: Female : 1925 Arrival Date: 08/08/2016 Time: 00:51 Bed TR2 Private MD: Diagnosis: Insomnia Presentation: 08/08 00:56 Presenting complaint: Patient states: Has not slept in 4 days. Pt has chronic insomnia jo3 and was taking Xanax. PCP was supposed to put her on something new but then said she couldn't take it and now she can't sleep again. Adult Sepsis Screening: The patient does not have new or worsening altered mentation. Suicide/Homicide risk assessment- the patient denies having any suicidal and/or homicidal ideations and does not present with any other emotional, behavioral or mental health complaints. Status: Patient is not a patient service representative or dependent. Transition of care: patient was not received from another setting of care. 00:56 Method Of Arrival: Walkin/Carried/Asstd jo3 01:08 Adult Sepsis Screening: Patient's respiratory rate is less than 22. Systolic blood jo3 pressure is greater than 100. Patient has a qSOFA score of 0- Negative Sepsis Screen. 01:08 Acuity: SKYLAR Level 3 jo3 Triage Assessment: 00:58 General: Appears in no apparent distress, Behavior is anxious, cooperative. jo3 Neurological: Level of Consciousness is awake, alert, Oriented to person, place, time. Respiratory: Airway is patent Respiratory effort is even, unlabored. Derm: Skin is pink, warm & dry. Injury Description: No known injury. 05:14 Pain: Denies pain. unique Historical: - Allergies: Benadryl; Ciprofloxacin HCl; - Home Meds: 1. atenolol 25 mg Oral tab 0.5 tab 2. Remeron 30 mg Oral tab 1 tab once daily 3. temazepam 7.5 mg Oral cap 1 cap once daily started 08/05/16 4. Xanax 0.5 mg Oral tab nightly Discontinued 08/05/16 5. tramadol-acetaminophen 37.5-325 mg Oral tab 1 tabs once a day - PMHx: Hypertension; insomnia; Sleep Apnea w/o CPAP; svt; - PSHx: Cholecystectomy; Knee surgery- Left; - Social history: Smoking status: Patient states was never smoker of tobacco. No barriers to communication noted, The patient speaks fluent Lithuanian, Speaks appropriately for age. - Family history: Not pertinent. - : The pt / caregiver states he / she is not on anticoagulants. Home medication list is obtained from the patient. - Exposure Risk Screening:: None identified. Screenin:25 Screening information is obtained from the patient. Fall risk: At risk due to age, The af2 following interventions are performed due to a positive Fall Risk Screen: Fall Risk is added to Special Handling on the patient Summary Screen. A Fall Risk Bracelet was applied to the patient. Side Rails are placed in the up position. A Call Andersen is given with instruction to call for help when getting out of bed. Assistance ADL's: requires no assistance with activities of daily living. Abuse/DV Screen: The patient / caregiver reports he/she is: not in a situation that causes fear, pain or injury. Nutritional screening: No deficits noted. Advance Directives: Currently, there is no health care proxy. home support is inadequate. Assessment: 01:26 General: Appears in no apparent distress, comfortable, Behavior is appropriate for age, af2 cooperative. General: states pt was taken off of her Xanax as she was not taking it appropriately- she was taking an extra 0.5 tablet each time. pt states she has not slept for 4 days.. Neurological: Level of Consciousness is awake, alert, obeys commands. Respiratory: Airway is patent Respiratory effort is even, unlabored. Derm: Skin is pink, warm & dry. 02:30 General: Appears in no apparent distress, comfortable, Behavior is appropriate for age, mlc cooperative. Neurological: Level of Consciousness is awake, alert, obeys commands. Respiratory: Airway is patent Respiratory effort is even, unlabored. Derm: Skin is pink, warm & dry. 03:40 General: Appears in no apparent distress, comfortable, Behavior is cooperative, pt af2 lying on stretcher resting quietly, resp easy and unlabored. will continue to monitor.. 04:33 General: Appears in no apparent distress, comfortable, Behavior is appropriate for age, af2 cooperative, pt out to nurses station, walking with upright and steady gait. states "I'm ready to leave. This bed isn't comfortable and my legs are twitching." provider notified.. Vital Signs: 01:08 BP 164 / 92; Pulse 72; Resp 16; Temp 96.9(O); Pulse Ox 96% ; Weight 78.02 kg; Height 5 jo3 ft. 4 in. (162.56 cm); 05:12 BP 166 / 88; Pulse 77; Resp 18 S; Temp 97.3(TE); Pulse Ox 97% on R/A; af2 01:08 Body Mass Index 29.52 (78.02 kg, 162.56 cm) jo3 Vitals: 00:58 Log In Time: August 08, 2016 at 00:51. jo3 ED Course: 00:53 Patient visited by Dusty Mazariegos Reg. pm4 00:53 Patient moved to Waiting pm4 01:01 Cordelia Butt RN is Primary Nurse. jo3 01:01 Patient moved to 13 jo3 01:09 Triage Initiated jo3 01:25 The patient / caregiver is instructed regarding the plan of care and ED course. af2 01:28 No IV's were initiated during this patient's visit. No procedures done that require af2 assistance. 01:29 Patient visited by Cordelia Butt RN. af2 01:33 Alex Giraldo DO is Attending Physician. mm11 01:33 Patient visited by Alex Giraldo DO. mm11 01:52 Patient visited by Alex Giraldo DO. mm11 02:30 Patient visited by Cordelia Butt RN. af2 02:46 [facility] Payment Agreement was scanned into [employer] and attached to record. hs2 02:56 Patient visited by Gabby Gamboa RN. mlc 03:38 Patient visited by Cordelia Butt RN. af2 03:41 Patient visited by Cordelia Butt RN. af2 04:32 Patient visited by Cordelia Butt RN. af2 04:39 Patient visited by Cordelia Butt RN. af2 05:00 Rohit Underwood MD is Referral Physician. mm11 05:06 Patient visited by Cordelia Butt RN. af2 05:11 Discontinued IV bleeding controlled, pressure dressing applied, No redness/swelling at unique site. 05:13 Patient visited by Cordelia Butt RN. af2 05:15 Patient moved to 2 cz Administered Medications: 02:21 Drug: NS 0.9% 1000 ml [sodium chloride 0.9 % intravenous solution] Route: IV; Rate: 75 af2 mL/hr; Site: right hand; 05:15 Follow up: IV Status: Infusion discontinued; IV Intake: 300ml af2 02:21 Drug: LORazepam 0.5 mg [lorazepam 2 mg/mL injection solution (0.25 mL)] Route: IVP; af2 Site: right hand; 05:15 Follow up: Response: Anxiety is improved af2 Intake: 05:15 IV: 300.00ml; Total: 300.00ml. af2 Order Results: Lab Order: CBC with Diff; SPEC'M 08/08/16 02:10 Test: WHITE BLOOD COUNT; Value: 8.1; Range: 4.0-10.0; Units: K/mm3; Status: F Test: RED BLOOD COUNT; Value: 4.81; Range: 4.00-5.40; Units: M/mm3; Status: F Test: HEMOGLOBIN; Value: 14.5; Range: 12.0-16.0; Units: g/dl; Status: F Test: HEMATOCRIT; Value: 43.1; Range: 36.0-47.0; Units: %; Status: F Test: MEAN CORPUSCULAR VOLUME; Value: 89.6; Range: 80.0-96.0; Units: fl; Status: F Test: MEAN CORPUSCULAR HEMOGLOBIN; Value: 30.2; Range: 27.0-33.0; Units: pg; Status: F Test: MEAN CORPUSCULAR HGB CONC; Value: 33.7; Range: 32.0-36.5; Units: g/dl; Status: F Test: RED CELL DISTRIBUTION WIDTH; Value: 12.6; Range: 11.5-14.5; Units: %; Status: F Test: PLATELET COUNT, AUTOMATED; Value: 180; Range: 150-450; Units: k/mm3; Status: F Test: NEUTROPHILS %; Value: 71.7; Range: 36.0-66.0; Abnormal: Above high normal; Units: %; Status: F Test: LYMPH %; Value: 18.6; Range: 24.0-44.0; Abnormal: Below low normal; Units: %; Status: F Test: MONO %; Value: 4.2; Range: 0.0-5.0; Units: %; Status: F Test: EOS %; Value: 2.2; Range: 0.0-3.0; Units: %; Status: F Test: BASO %; Value: 0.8; Range: 0.0-1.0; Units: %; Status: F Test: LARGE UNSTAINED CELL %; Value: 2.5; Range: 0.0-4.0; Units: %; Status: F Test: NEUTROPHILS #; Value: 5.8; Range: 1.8-7.7; Units: K/mm3; Status: F Test: LYMPH #; Value: 1.5; Range: 1.5-4.5; Units: K/mm3; Status: F Test: MONO #; Value: 0.3; Range: 0.0-0.8; Units: K/mm3; Status: F Test: EOS #; Value: 0.2; Range: 0.0-0.50; Units: K/mm3; Status: F Test: BASO #; Value: 0.1; Range: 0.0-0.2; Units: K/mm3; Status: F Test: LARGE UNSTAINED CELL #; Value: 0.2; Range: 0.0-0.4; Units: K/mm3; Status: F Lab Order: [facility]; SPEC'M 08/08/16 02:10 Test: GLUCOSE, FASTING; Value: 107; Range: 83-110; Units: MG/DL; Status: F Test: BLOOD UREA NITROGEN; Value: 15; Range: 7-18; Units: MG/DL; Status: F Test: CREATININE FOR GFR; Value: 0.71; Range: 0.55-1.02; Units: MG/DL; Status: F Test: GLOMERULAR FILTRATION RATE; Value: > 60.0; Range: >32; Status: F Test: SODIUM LEVEL; Value: 138; Range: 136-145; Units: MEQ/L; Status: F Test: POTASSIUM SERUM; Value: 4.0; Range: 3.5-5.1; Units: MEQ/L; Status: F Test: CHLORIDE LEVEL; Value: 103; Range: 98-107; Units: MEQ/L; Status: F Test: CARBON DIOXIDE LEVEL; Value: 25; Range: 21-32; Units: MEQ/L; Status: F Test: ANION GAP; Value: 10; Range: 8-16; Units: MEQ/L; Status: F Test: CALCIUM LEVEL; Value: 8.9; Range: 8.8-10.2; Units: MG/DL; Status: F Test Note: ; Units are mL/min/1.73 m2 Chronic Kidney Disease Staging per NKF: Stage I & II GFR >=60 Normal to Mildly Decreased Stage III GFR 30-59 Moderately Decreased Stage IV GFR 15-29 Severely Decreased Stage V GFR <15 Very Little GFR Left ESRD GFR <15 on PRODUCTION ADMINISTRATIVE ASSISTANT Outcome: 05:00 Discharge ordered by Provider. mm11 05:11 Discharge Assessment: received benzo drug, safe discharge home provided. patient unique administered narcotics - no. The following High Risk Discharge criteria are identified: None. Discharged to home via wheelchair, with significant other. Condition: stable. Discharge instructions given to significant other, Instructed on discharge instructions, follow up and referral plans. Demonstrated understanding of instructions, Pt was receptive of discharge instructions/ teaching. No special radiology studies were completed. Property sent home with patient. 05:17 Patient left the ED. af2 Signatures: Lakeisha Wolf RN Shaw George RN RN cz Helmerci, Jennifer, RN RN jo3 Alex Giraldo, DO mm11 Gabby Gamboa RN RN mlc Fulton, Amber, RN RN af2 Ivette Bauer, Reg Reg hs2 Dusty Mazariegos, Reg Reg pm4 Corrections: (The following items were deleted from the chart) 01:01 00:56 Presenting complaint: Patient states: Has not slept in 4 days stewart william MTDD
--- NOTE | 2016-08-10 06:19 | EDDOCDS ---
Physician Documentation [facility] Name: Dahiana Pandey Age: 89 yrs Sex: Female : 1925 Arrival Date: 08/08/2016 Time: 00:51 Bed TR2 Private MD: Disposition: 08/08/16 05:00 Discharged to Home/Self Care. Impression: Insomnia. - Condition is Stable. - Discharge Instructions: Insomnia. - Medication Reconciliation, Local Pharmacy Hours form. - Follow up: Rohit Underwood MD; When: Call to arrange an appointment; Reason: Continuance of care. - Problem is an acute exacerbation. - Symptoms have improved. Historical: - Allergies: Benadryl; Ciprofloxacin HCl; - Home Meds: 1. atenolol 25 mg Oral tab 0.5 tab 2. Remeron 30 mg Oral tab 1 tab once daily 3. temazepam 7.5 mg Oral cap 1 cap once daily started 08/05/16 4. Xanax 0.5 mg Oral tab nightly Discontinued 08/05/16 5. tramadol-acetaminophen 37.5-325 mg Oral tab 1 tabs once a day - PMHx: Hypertension; insomnia; Sleep Apnea w/o CPAP; svt; - PSHx: Cholecystectomy; Knee surgery- Left; - Social history: Smoking status: Patient states was never smoker of tobacco. No barriers to communication noted, The patient speaks fluent Uzbek, Speaks appropriately for age. - Family history: Not pertinent. - : The pt / caregiver states he / she is not on anticoagulants. Home medication list is obtained from the patient. - Exposure Risk Screening:: None identified. Vital Signs: 08/08 01:08 BP 164 / 92; Pulse 72; Resp 16; Temp 96.9(O); Pulse Ox 96% ; Weight 78.02 kg / 172 lbs; jo3 Height 5 ft. 4 in. (162.56 cm); 05:12 BP 166 / 88; Pulse 77; Resp 18 S; Temp 97.3(TE); Pulse Ox 97% on R/A; af2 01:08 Body Mass Index 29.52 (78.02 kg, 162.56 cm) jo3 MDM: 01:53 IV Saline Lock ordered. mm11 01:53 NS 0.9% 1000 ml IV at 75 mL/hr continuous ordered. mm11 01:53 LORazepam 0.5 mg IVP once ordered. mm11 01:54 CBC with Diff Ordered. EDMS 01:54 BMP Ordered. EDMS 02:45 Financial registration complete. hs2 02:46 [facility] Payment Agreement was scanned into [employer] and attached to record. hs2 03:02 CBC with Diff Reviewed. mm11 03:02 BMP Reviewed. mm11 13:53 T-Sheet-- Draft Copy was scanned into [employer] and attached to record. gb Administered Medications: 02:21 Drug: NS 0.9% 1000 ml [sodium chloride 0.9 % intravenous solution] Route: IV; Rate: 75 af2 mL/hr; Site: right hand; 05:15 Follow up: IV Status: Infusion discontinued; IV Intake: 300ml af2 02:21 Drug: LORazepam 0.5 mg [lorazepam 2 mg/mL injection solution (0.25 mL)] Route: IVP; af2 Site: right hand; 05:15 Follow up: Response: Anxiety is improved af2 Signatures: Dispatcher [employer] EDMS Lakeisha Wolf RN Mariangel Palmer, Reg Reg gb January Hatfield RN RN jo3 Alex Giraldo, DO mm11 Cordelia ButtRN RN af2 Ivette Bauer, Reg Reg hs2 The chart was reviewed and I authenticate all verbal orders and agree with the evaluation and treatment provided.Corrections: (The following items were deleted from the chart) 04:44 01:28 Consult: Sack Cleaner ordered. af2 af2 Attachments: 02:46 [facility] Payment Agreement hs2 13:53 T-Sheet-- Draft Copy gb Chart Complete MTDD
--- NOTE | 2016-08-10 06:19 | EDDOCDS ---
Physician Documentation [facility] Name: Dahiana Pandey Age: 89 yrs Sex: Female : 1925 Arrival Date: 08/08/2016 Time: 00:51 Bed TR2 Private MD: Disposition: 08/08/16 05:00 Discharged to Home/Self Care. Impression: Insomnia. - Condition is Stable. - Discharge Instructions: Insomnia. - Medication Reconciliation, Local Pharmacy Hours form. - Follow up: Rohit Underwood MD; When: Call to arrange an appointment; Reason: Continuance of care. - Problem is an acute exacerbation. - Symptoms have improved. Historical: - Allergies: Benadryl; Ciprofloxacin HCl; - Home Meds: 1. atenolol 25 mg Oral tab 0.5 tab 2. Remeron 30 mg Oral tab 1 tab once daily 3. temazepam 7.5 mg Oral cap 1 cap once daily started 08/05/16 4. Xanax 0.5 mg Oral tab nightly Discontinued 08/05/16 5. tramadol-acetaminophen 37.5-325 mg Oral tab 1 tabs once a day - PMHx: Hypertension; insomnia; Sleep Apnea w/o CPAP; svt; - PSHx: Cholecystectomy; Knee surgery- Left; - Social history: Smoking status: Patient states was never smoker of tobacco. No barriers to communication noted, The patient speaks fluent Surinamese, Speaks appropriately for age. - Family history: Not pertinent. - : The pt / caregiver states he / she is not on anticoagulants. Home medication list is obtained from the patient. - Exposure Risk Screening:: None identified. Vital Signs: 08/08 01:08 BP 164 / 92; Pulse 72; Resp 16; Temp 96.9(O); Pulse Ox 96% ; Weight 78.02 kg / 172 lbs; jo3 Height 5 ft. 4 in. (162.56 cm); 05:12 BP 166 / 88; Pulse 77; Resp 18 S; Temp 97.3(TE); Pulse Ox 97% on R/A; af2 01:08 Body Mass Index 29.52 (78.02 kg, 162.56 cm) jo3 MDM: 01:53 IV Saline Lock ordered. mm11 01:53 NS 0.9% 1000 ml IV at 75 mL/hr continuous ordered. mm11 01:53 LORazepam 0.5 mg IVP once ordered. mm11 01:54 CBC with Diff Ordered. EDMS 01:54 BMP Ordered. EDMS 02:45 Financial registration complete. hs2 02:46 [facility] Payment Agreement was scanned into [employer] and attached to record. hs2 03:02 CBC with Diff Reviewed. mm11 03:02 BMP Reviewed. mm11 13:53 T-Sheet-- Draft Copy was scanned into [employer] and attached to record. gb Administered Medications: 02:21 Drug: NS 0.9% 1000 ml [sodium chloride 0.9 % intravenous solution] Route: IV; Rate: 75 af2 mL/hr; Site: right hand; 05:15 Follow up: IV Status: Infusion discontinued; IV Intake: 300ml af2 02:21 Drug: LORazepam 0.5 mg [lorazepam 2 mg/mL injection solution (0.25 mL)] Route: IVP; af2 Site: right hand; 05:15 Follow up: Response: Anxiety is improved af2 Signatures: Dispatcher [employer] EDMS Lakeisha Wolf RN Mariangel Palmer, Reg Reg gb January Hatfield RN RN jo3 Alex Giraldo, DO mm11 Cordelia ButtRN RN af2 Ivette Bauer, Reg Reg hs2 The chart was reviewed and I authenticate all verbal orders and agree with the evaluation and treatment provided.Corrections: (The following items were deleted from the chart) 04:44 01:28 Consult: Supervisor Money Room ordered. af2 af2 Attachments: 02:46 [facility] Payment Agreement hs2 13:53 T-Sheet-- Draft Copy gb Chart Complete MTDD
--- NOTE | 2016-08-10 06:19 | EDDOCDS ---
Nurse's Notes [facility] Name: Dahiana Pandey Age: 89 yrs Sex: Female : 1925 Arrival Date: 08/08/2016 Time: 00:51 Bed TR2 Private MD: Diagnosis: Insomnia Presentation: 08/08 00:56 Presenting complaint: Patient states: Has not slept in 4 days. Pt has chronic insomnia jo3 and was taking Xanax. PCP was supposed to put her on something new but then said she couldn't take it and now she can't sleep again. Adult Sepsis Screening: The patient does not have new or worsening altered mentation. Suicide/Homicide risk assessment- the patient denies having any suicidal and/or homicidal ideations and does not present with any other emotional, behavioral or mental health complaints. Status: Patient is not a client services manager or dependent. Transition of care: patient was not received from another setting of care. 00:56 Method Of Arrival: Walkin/Carried/Asstd jo3 01:08 Adult Sepsis Screening: Patient's respiratory rate is less than 22. Systolic blood jo3 pressure is greater than 100. Patient has a qSOFA score of 0- Negative Sepsis Screen. 01:08 Acuity: SKYLAR Level 3 jo3 Triage Assessment: 00:58 General: Appears in no apparent distress, Behavior is anxious, cooperative. jo3 Neurological: Level of Consciousness is awake, alert, Oriented to person, place, time. Respiratory: Airway is patent Respiratory effort is even, unlabored. Derm: Skin is pink, warm & dry. Injury Description: No known injury. 05:14 Pain: Denies pain. unique Historical: - Allergies: Benadryl; Ciprofloxacin HCl; - Home Meds: 1. atenolol 25 mg Oral tab 0.5 tab 2. Remeron 30 mg Oral tab 1 tab once daily 3. temazepam 7.5 mg Oral cap 1 cap once daily started 08/05/16 4. Xanax 0.5 mg Oral tab nightly Discontinued 08/05/16 5. tramadol-acetaminophen 37.5-325 mg Oral tab 1 tabs once a day - PMHx: Hypertension; insomnia; Sleep Apnea w/o CPAP; svt; - PSHx: Cholecystectomy; Knee surgery- Left; - Social history: Smoking status: Patient states was never smoker of tobacco. No barriers to communication noted, The patient speaks fluent Uzbek, Speaks appropriately for age. - Family history: Not pertinent. - : The pt / caregiver states he / she is not on anticoagulants. Home medication list is obtained from the patient. - Exposure Risk Screening:: None identified. Screenin:25 Screening information is obtained from the patient. Fall risk: At risk due to age, The af2 following interventions are performed due to a positive Fall Risk Screen: Fall Risk is added to Special Handling on the patient Summary Screen. A Fall Risk Bracelet was applied to the patient. Side Rails are placed in the up position. A Call Andersen is given with instruction to call for help when getting out of bed. Assistance ADL's: requires no assistance with activities of daily living. Abuse/DV Screen: The patient / caregiver reports he/she is: not in a situation that causes fear, pain or injury. Nutritional screening: No deficits noted. Advance Directives: Currently, there is no health care proxy. home support is inadequate. Assessment: 01:26 General: Appears in no apparent distress, comfortable, Behavior is appropriate for age, af2 cooperative. General: states pt was taken off of her Xanax as she was not taking it appropriately- she was taking an extra 0.5 tablet each time. pt states she has not slept for 4 days.. Neurological: Level of Consciousness is awake, alert, obeys commands. Respiratory: Airway is patent Respiratory effort is even, unlabored. Derm: Skin is pink, warm & dry. 02:30 General: Appears in no apparent distress, comfortable, Behavior is appropriate for age, mlc cooperative. Neurological: Level of Consciousness is awake, alert, obeys commands. Respiratory: Airway is patent Respiratory effort is even, unlabored. Derm: Skin is pink, warm & dry. 03:40 General: Appears in no apparent distress, comfortable, Behavior is cooperative, pt af2 lying on stretcher resting quietly, resp easy and unlabored. will continue to monitor.. 04:33 General: Appears in no apparent distress, comfortable, Behavior is appropriate for age, af2 cooperative, pt out to nurses station, walking with upright and steady gait. states "I'm ready to leave. This bed isn't comfortable and my legs are twitching." provider notified.. Vital Signs: 01:08 BP 164 / 92; Pulse 72; Resp 16; Temp 96.9(O); Pulse Ox 96% ; Weight 78.02 kg; Height 5 jo3 ft. 4 in. (162.56 cm); 05:12 BP 166 / 88; Pulse 77; Resp 18 S; Temp 97.3(TE); Pulse Ox 97% on R/A; af2 01:08 Body Mass Index 29.52 (78.02 kg, 162.56 cm) jo3 Vitals: 00:58 Log In Time: August 08, 2016 at 00:51. jo3 ED Course: 00:53 Patient visited by Dusty Mazariegos Reg. pm4 00:53 Patient moved to Waiting pm4 01:01 Cordelia Butt RN is Primary Nurse. jo3 01:01 Patient moved to 13 jo3 01:09 Triage Initiated jo3 01:25 The patient / caregiver is instructed regarding the plan of care and ED course. af2 01:28 No IV's were initiated during this patient's visit. No procedures done that require af2 assistance. 01:29 Patient visited by Cordelia Butt RN. af2 01:33 Alex Giraldo DO is Attending Physician. mm11 01:33 Patient visited by Alex Giraldo DO. mm11 01:52 Patient visited by Alex Giraldo DO. mm11 02:30 Patient visited by Cordelia Butt RN. af2 02:46 [facility] Payment Agreement was scanned into [employer] and attached to record. hs2 02:56 Patient visited by Gabby Gamboa RN. mlc 03:38 Patient visited by Cordelia Butt RN. af2 03:41 Patient visited by Cordelia Butt RN. af2 04:32 Patient visited by Cordelia Butt RN. af2 04:39 Patient visited by Cordelia Butt RN. af2 05:00 Rohit Underwood MD is Referral Physician. mm11 05:06 Patient visited by Cordelia Butt RN. af2 05:11 Discontinued IV bleeding controlled, pressure dressing applied, No redness/swelling at unique site. 05:13 Patient visited by Cordelia Butt RN. af2 05:15 Patient moved to [facility] 13:53 T-Sheet-- Draft Copy was scanned into [employer] and attached to record. gb Administered Medications: 02:21 Drug: NS 0.9% 1000 ml [sodium chloride 0.9 % intravenous solution] Route: IV; Rate: 75 af2 mL/hr; Site: right hand; 05:15 Follow up: IV Status: Infusion discontinued; IV Intake: 300ml af2 02:21 Drug: LORazepam 0.5 mg [lorazepam 2 mg/mL injection solution (0.25 mL)] Route: IVP; af2 Site: right hand; 05:15 Follow up: Response: Anxiety is improved af2 Intake: 05:15 IV: 300.00ml; Total: 300.00ml. af2 Order Results: Lab Order: CBC with Diff; SPEC'M 08/08/16 02:10 Test: WHITE BLOOD COUNT; Value: 8.1; Range: 4.0-10.0; Units: K/mm3; Status: F Test: RED BLOOD COUNT; Value: 4.81; Range: 4.00-5.40; Units: M/mm3; Status: F Test: HEMOGLOBIN; Value: 14.5; Range: 12.0-16.0; Units: g/dl; Status: F Test: HEMATOCRIT; Value: 43.1; Range: 36.0-47.0; Units: %; Status: F Test: MEAN CORPUSCULAR VOLUME; Value: 89.6; Range: 80.0-96.0; Units: fl; Status: F Test: MEAN CORPUSCULAR HEMOGLOBIN; Value: 30.2; Range: 27.0-33.0; Units: pg; Status: F Test: MEAN CORPUSCULAR HGB CONC; Value: 33.7; Range: 32.0-36.5; Units: g/dl; Status: F Test: RED CELL DISTRIBUTION WIDTH; Value: 12.6; Range: 11.5-14.5; Units: %; Status: F Test: PLATELET COUNT, AUTOMATED; Value: 180; Range: 150-450; Units: k/mm3; Status: F Test: NEUTROPHILS %; Value: 71.7; Range: 36.0-66.0; Abnormal: Above high normal; Units: %; Status: F Test: LYMPH %; Value: 18.6; Range: 24.0-44.0; Abnormal: Below low normal; Units: %; Status: F Test: MONO %; Value: 4.2; Range: 0.0-5.0; Units: %; Status: F Test: EOS %; Value: 2.2; Range: 0.0-3.0; Units: %; Status: F Test: BASO %; Value: 0.8; Range: 0.0-1.0; Units: %; Status: F Test: LARGE UNSTAINED CELL %; Value: 2.5; Range: 0.0-4.0; Units: %; Status: F Test: NEUTROPHILS #; Value: 5.8; Range: 1.8-7.7; Units: K/mm3; Status: F Test: LYMPH #; Value: 1.5; Range: 1.5-4.5; Units: K/mm3; Status: F Test: MONO #; Value: 0.3; Range: 0.0-0.8; Units: K/mm3; Status: F Test: EOS #; Value: 0.2; Range: 0.0-0.50; Units: K/mm3; Status: F Test: BASO #; Value: 0.1; Range: 0.0-0.2; Units: K/mm3; Status: F Test: LARGE UNSTAINED CELL #; Value: 0.2; Range: 0.0-0.4; Units: K/mm3; Status: F Lab Order: [facility]; SPEC'M 08/08/16 02:10 Test: GLUCOSE, FASTING; Value: 107; Range: 83-110; Units: MG/DL; Status: F Test: BLOOD UREA NITROGEN; Value: 15; Range: 7-18; Units: MG/DL; Status: F Test: CREATININE FOR GFR; Value: 0.71; Range: 0.55-1.02; Units: MG/DL; Status: F Test: GLOMERULAR FILTRATION RATE; Value: > 60.0; Range: >32; Status: F Test: SODIUM LEVEL; Value: 138; Range: 136-145; Units: MEQ/L; Status: F Test: POTASSIUM SERUM; Value: 4.0; Range: 3.5-5.1; Units: MEQ/L; Status: F Test: CHLORIDE LEVEL; Value: 103; Range: 98-107; Units: MEQ/L; Status: F Test: CARBON DIOXIDE LEVEL; Value: 25; Range: 21-32; Units: MEQ/L; Status: F Test: ANION GAP; Value: 10; Range: 8-16; Units: MEQ/L; Status: F Test: CALCIUM LEVEL; Value: 8.9; Range: 8.8-10.2; Units: MG/DL; Status: F Test Note: ; Units are mL/min/1.73 m2 Chronic Kidney Disease Staging per NKF: Stage I & II GFR >=60 Normal to Mildly Decreased Stage III GFR 30-59 Moderately Decreased Stage IV GFR 15-29 Severely Decreased Stage V GFR <15 Very Little GFR Left ESRD GFR <15 on REGISTRATION MANAGER Outcome: 05:00 Discharge ordered by Provider. mm11 05:11 Discharge Assessment: received benzo drug, safe discharge home provided. patient unique administered narcotics - no. The following High Risk Discharge criteria are identified: None. Discharged to home via wheelchair, with significant other. Condition: stable. Discharge instructions given to significant other, Instructed on discharge instructions, follow up and referral plans. Demonstrated understanding of instructions, Pt was receptive of discharge instructions/ teaching. No special radiology studies were completed. Property sent home with patient. 05:17 Patient left the ED. af2 Signatures: Lakeisha Wolf RN RN jan Zecher, Calvin, RN Mariangel Johnson, Reg Reg gb January Hatfield RN RN jo3 Alex Giraldo DO DO mm11 Gabby Gamboa RN RN mlc F[place]on, Amber, RN RN af2 Ivette Bauer, Reg Reg hs2 Dusty Mazariegos, Reg Reg pm4 Corrections: (The following items were deleted from the chart) 01:01 00:56 Presenting complaint: Patient states: Has not slept in 4 days stewart william Chart Complete MTDD
== END 2016-08-08 05:17 | disposition home or self-care (01) ==
LOC: M ED 00:51
DX: G47.00 Insomnia, unspecified (principal); I10 Essential (primary) hypertension; G47.30 Sleep apnea, unspecified; I47.1 Supraventricular tachycardia; Z79.891 Long term (current) use of opiate analgesic; Z79.899 Other long term (current) drug therapy; Z88.1 Allergy status to other antibiotic agents; Z88.8 Allergy status to other drugs, medicaments and biological substances
CPT/HCPCS: 80048; 85025; 96361; 96374; 99283; J2060

== ENCOUNTER 2016-08-10 07:15 | Emergency (ER) | payer MEDICARE, OTHER ==
[2016-08-10] MEDS ORDERED: ONDANSETRON 4MG/2ML VIAL (J2405) As Ordered ONE (08:17)
[2016-08-10] MEDS ORDERED: LORazepam 2 MG/ML VIAL (J2060) As Ordered ONE (08:18)
[2016-08-10 08:37] LABS: MEAN CORPUSCULAR HEMOGLOBIN 30.5 pg (27.0-33.0); MEAN CORPUSCULAR HGB CONC 33.8 g/dl (32.0-36.5); MEAN CORPUSCULAR VOLUME 90.3 fl (80.0-96.0); WHITE BLOOD COUNT 6.9 K/mm3 (4.0-10.0)
[2016-08-10 09:03] LABS: ALBUMIN 3.8 GM/DL (3.2-5.2); ALBUMIN/GLOBULIN RATIO 1.15 (1.00-1.93); ALKALINE PHOSPHATASE 70 U/L (45-117); ALT/SGPT 17 U/L (12-78); ANION GAP 9 MEQ/L (8-16); AST/SGOT 15 U/L (15-37); BILIRUBIN,DIRECT 0.1 MG/DL (0.0-0.2); BILIRUBIN,TOTAL 0.7 MG/DL (0.2-1.0); BLOOD UREA NITROGEN 12 MG/DL (7-18); CALCIUM LEVEL 9.1 MG/DL (8.8-10.2); CARBON DIOXIDE LEVEL 24 MEQ/L (21-32); CHLORIDE LEVEL 103 MEQ/L (98-107); CREATININE FOR GFR 0.73 MG/DL (0.55-1.02); GLOMERULAR FILTRATION RATE > 60.0 (>32); GLUCOSE, FASTING 99 MG/DL (83-110); SODIUM LEVEL 136 MEQ/L (136-145); TOTAL PROTEIN 7.1 GM/DL (6.4-8.2)
--- NOTE | 2016-08-10 11:17 | EDDOCDS ---
Nurse's Notes [facility] Name: Dahiana Pandey Age: 89 yrs Sex: Female : 1925 Arrival Date: 08/10/2016 Time: 07:15 Bed 14 Private MD: Diagnosis: Other psychoactive substance dependence with withdrawal;Weakness Presentation: 08/10 07:21 Presenting complaint: Patient states: MD Heath took patient off Xanax about 3-4 day pml ago. reports upset stomach - states she is having withdrawals, cant remember it all. states "I am sicker than a dog I need a pill to help me get off it". Adult Sepsis Screening: The patient does not have new or worsening altered mentation. Patient's respiratory rate is less than 22. Systolic blood pressure is greater than 100. Patient has a qSOFA score of 0- Negative Sepsis Screen. Suicide/Homicide risk assessment- the patient denies having any suicidal and/or homicidal ideations and does not present with any other emotional, behavioral or mental health complaints. Status: Patient is not a environmental services attendant or dependent. Transition of care: patient was not received from another setting of care. 07:21 Acuity: SKYLAR Level 3 pml 07:21 Method Of Arrival: Walkin/Carried/Asstd pml Triage Assessment: 07:26 General: Appears in no apparent distress, Behavior is agitated, inappropriate for age, pml uncooperative. Pain: Denies pain. Historical: - Allergies: Benadryl; Ciprofloxacin HCl; - Home Meds: 1. temazepam 7.5 mg Oral cap 1 cap once daily has not been taking 2. atenolol 25 mg Oral tab 0.5 tab as needed 3. trazodone 50 mg Oral tab nightly has not been taking 4. hydroxyzine HCl 25 mg Oral tab 0.5 tab has not been taking 5. tramadol-acetaminophen 37.5-325 mg Oral tab 1 tabs once a day has not been taking - PMHx: Hypertension; insomnia; Sleep Apnea w/o CPAP; svt; - PSHx: Cholecystectomy; Knee surgery- Left; - Social history: Smoking status: Patient states was never smoker of tobacco. No barriers to communication noted, The patient speaks fluent Urdu, Speaks appropriately for age. - Family history: Not pertinent. - : The pt / caregiver states he / she is not on anticoagulants. Home medication list is obtained from the patient, pill bottles. - Exposure Risk Screening:: None identified. Screenin:21 Fall Risk. jjr 08:21 Screening information is obtained from the patient. Fall risk: At risk due to age, The jjr following interventions are performed due to a positive Fall Risk Screen: added to special handling. Abuse/DV Screen: The patient / caregiver reports he/she is: not in a situation that causes fear, pain or injury. Nutritional screening: No deficits noted. home support is adequate. 10:23 Advance Directives: Currently, there is a health care proxy, Dom Pandey, kc3 . 10:24 Assistance ADL's: requires no assistance with activities of daily living. kc3 Assessment: 08:20 General: Appears in no apparent distress, well nourished, well groomed, Behavior is jjr anxious. Pain: Location: right ankle and left knee Is chronic. Neurological: No deficits noted. Respiratory: Airway is patent Respiratory effort is even, unlabored, Respiratory pattern is regular. GI: Reports nausea. Derm: No deficits noted. 09:31 General: Appears in no apparent distress, comfortable, Behavior is anxious, appropriate kc3 for age, cooperative, Pt reports "I've been laying here so long, my legs are starting to twitch." Pt assisted to comfortable position in bed. . Pain: Location: left knee. Neurological: Level of Consciousness is awake, alert, obeys commands, Oriented to person, place, time. Respiratory: Respiratory effort is even, unlabored. Derm: Skin is pink, warm & dry. 10:30 General: Appears in no apparent distress, comfortable, Behavior is appropriate for age, kc3 cooperative. General: Pt given arnaud momo per request. . Pain: Location: left knee. Neurological: No deficits noted. Respiratory: Respiratory effort is even, unlabored. Derm: Skin is pink, warm & dry. 11:14 General: Appears in no apparent distress, comfortable, Behavior is appropriate for age, kc3 cooperative. Pain: Location: left knee. Neurological: Level of Consciousness is awake, alert, obeys commands, Oriented to person, place, time. Respiratory: Respiratory effort is even, unlabored. Derm: Skin is pink, warm & dry. Social Work Consult: 10:26 Social Work Note: PSA met with pt at bedside. Pt reports she was taken off her Zanex cs twice "cold Osmond" by her Dr. Vides, and now he went on vacation and she is having "withdraw symptoms." Pt was not feeling well past 3 -4 days, stopped taking the medication 1 week, per Dom. Dom States he would like to see her come off the medication slowly and they will look for another doctor. 10:36 Social Work Note: Dom also stated he would like to see her have a smaller dose to cs help with the withdrawals and would in to pick her up. Pt ok ed DC plan with numbers given for family to talk to about withdrawal symptoms. Support extended. Vital Signs: 07:26 BP 148 / 70; Pulse 75; Resp 18; Temp 96.5(O); Pulse Ox 97% ; Weight 78.93 kg; Height 5 pml ft. 5 in. (165.10 cm); Pain 0/10; 09:20 BP 187 / 82; Pulse 68; Resp 20; Pulse Ox 98% on R/A; kc3 11:14 BP 163 / 80; Pulse 64; Resp 18; Temp 97.1(O); Pulse Ox 94% on R/A; kc3 07:26 Body Mass Index 28.95 (78.93 kg, 165.10 cm) [facility] Vitals: 07:26 Log In Time: August 10, 2016 at 07:16. [facility] ED Course: 07:16 Patient visited by Ivette Bauer, Reg. hs2 07:16 Patient moved to Waiting hs2 07:22 Triage Initiated pml 07:29 Patient visited by Belen Kemp RN. pml 07:29 Aneta Bautista MD is Attending Physician. ml 07:29 Patient visited by Aneta Bautista MD. ml 07:29 Patient moved to 14 pml 08:19 Acetaminophen Level Sent. jjr 08:19 Basic Metabolic Profile Sent. jjr 08:19 Complete Blood Count Sent. jjr 08:19 Ethyl Alcohol (ethanol) Sent. jjr 08:19 Liver Profile Sent. jjr 08:19 Salicylate Level Sent. jjr 08:19 Thyroid Stimulating Hormone Sent. jjr 08:20 Inserted saline lock: 22 gauge in left hand and blood collected. Labs drawn. (by ED jjr staff). Sent per order to lab. 08:21 Patient visited by Shanda Paiz RN. jjr 08:21 The patient / caregiver is instructed regarding the plan of care and ED course. jjr 09:00 [facility] Payment Agreement was scanned into [employer] and attached to record. mpb 09:01 Rachel Juan,RN is Primary Nurse. kc3 09:02 Patient visited by Rachel Juan,JENNIFER. kc3 10:02 Patient visited by Janki Fong RN. ead 10:24 No procedures done that require assistance. kc3 10:26 PSA Outpatient Referrals was scanned into [employer] and attached to record. cs 10:28 [facility] is Referral Physician. ml 10:50 Discontinued IV lock intact, bleeding controlled, pressure dressing applied, No kc3 redness/swelling at site. Administered Medications: 08:25 Drug: Ondansetron 4 mg [ondansetron HCl 2 mg/mL intravenous solution (2 mL)] Route: mlb1 IVP; Site: left hand; 08:25 Drug: LORazepam 1 mg [lorazepam 2 mg/mL injection solution (0.5 mL)] Route: IVP; Site: mlb1 left hand; 08:25 Drug: NS 0.9% 500 ml [sodium chloride 0.9 % injection solution] Route: IV; Rate: bolus; mlb1 Site: left hand; 09:30 Follow up: IV Status: Completed infusion kc3 Order Results: Lab Order: Acetaminophen Level; SPEC'M 08/10/16 08:17 Test: ACETAMINOPHEN LEVEL; Value: < 2.0; Range: 10.0-30.0; Abnormal: Below low normal; Units: UG/ML; Status: F Lab Order: Basic Metabolic Profile; SPEC'M 08/10/16 08:17 Test: GLUCOSE, FASTING; Value: 99; Range: 83-110; Units: MG/DL; Status: F Test: BLOOD UREA NITROGEN; Value: 12; Range: 7-18; Units: MG/DL; Status: F Test: CREATININE FOR GFR; Value: 0.73; Range: 0.55-1.02; Units: MG/DL; Status: F Test: GLOMERULAR FILTRATION RATE; Value: > 60.0; Range: >32; Status: F Test: SODIUM LEVEL; Value: 136; Range: 136-145; Units: MEQ/L; Status: F Test: POTASSIUM SERUM; Value: 4.0; Range: 3.5-5.1; Units: MEQ/L; Status: F Test: CHLORIDE LEVEL; Value: 103; Range: 98-107; Units: MEQ/L; Status: F Test: CARBON DIOXIDE LEVEL; Value: 24; Range: 21-32; Units: MEQ/L; Status: F Test: ANION GAP; Value: 9; Range: 8-16; Units: MEQ/L; Status: F Test: CALCIUM LEVEL; Value: 9.1; Range: 8.8-10.2; Units: MG/DL; Status: F Test Note: ; Units are mL/min/1.73 m2 Chronic Kidney Disease Staging per NKF: Stage I & II GFR >=60 Normal to Mildly Decreased Stage III GFR 30-59 Moderately Decreased Stage IV GFR 15-29 Severely Decreased Stage V GFR <15 Very Little GFR Left ESRD GFR <15 on OIL INSPECTOR Lab Order: Complete Blood Count; [facility] 08/10/16 08:17 Test: WHITE BLOOD COUNT; Value: 6.9; Range: 4.0-10.0; Units: K/mm3; Status: F Test: RED BLOOD COUNT; Value: 4.66; Range: 4.00-5.40; Units: M/mm3; Status: F Test: HEMOGLOBIN; Value: 14.2; Range: 12.0-16.0; Units: g/dl; Status: F Test: HEMATOCRIT; Value: 42.1; Range: 36.0-47.0; Units: %; Status: F Test: MEAN CORPUSCULAR VOLUME; Value: 90.3; Range: 80.0-96.0; Units: fl; Status: F Test: MEAN CORPUSCULAR HEMOGLOBIN; Value: 30.5; Range: 27.0-33.0; Units: pg; Status: F Test: MEAN CORPUSCULAR HGB CONC; Value: 33.8; Range: 32.0-36.5; Units: g/dl; Status: F Test: RED CELL DISTRIBUTION WIDTH; Value: 13.0; Range: 11.5-14.5; Units: %; Status: F Test: PLATELET COUNT, AUTOMATED; Value: 182; Range: 150-450; Units: k/mm3; Status: F Lab Order: Ethyl Alcohol (ethanol); SPEC08/10/16 08:17 Test: ETHYL ALCOHOL (ETHANOL); Value: < 0.003; Range: 0.000-0.010; Units: %; Status: F Lab Order: Liver Profile; [facility]08/10/16 08:17 Test: AST/SGOT; Value: 15; Range: 15-37; Units: U/L; Status: F Test: ALT/SGPT; Value: 17; Range: 12-78; Units: U/L; Status: F Test: ALKALINE PHOSPHATASE; Value: 70; Range: 45-117; Units: U/L; Status: F Test: BILIRUBIN,TOTAL; Value: 0.7; Range: 0.2-1.0; Units: MG/DL; Status: F Test: BILIRUBIN,DIRECT; Value: 0.1; Range: 0.0-0.2; Units: MG/DL; Status: F Test: TOTAL PROTEIN; Value: 7.1; Range: 6.4-8.2; Units: GM/DL; Status: F Test: ALBUMIN; Value: 3.8; Range: 3.2-5.2; Units: GM/DL; Status: F Test: ALBUMIN/GLOBULIN RATIO; Value: 1.15; Range: 1.00-1.93; Status: F Lab Order: Salicylate Level; 08/10/16 08:17 Test: SALICYLATE LEVEL; Value: < 1.7; Range: 5.0-30.0; Abnormal: Below low normal; Units: MG/DL; Status: F Lab Order: Thyroid Stimulating Hormone; [facility]08/10/16 08:17 Test: THYROID STIMULATING HORMONE; Value: 3.670; Range: 0.358-3.740; Units: uIU/ML; Status: F Outcome: 10:26 Discharge ordered by Provider. ml 11:15 Discharge Assessment: Patient awake, alert and oriented x 3. No cognitive and/or kc3 functional deficits noted. Patient verbalized understanding of disposition instructions. patient administered narcotics - yes. Pt provided with safe discharge. The following High Risk Discharge criteria are identified: None. Discharged to home via wheelchair, with family. Condition: stable. Discharge instructions given to patient, family, Instructed on discharge instructions, follow up and referral plans. medication usage, Demonstrated understanding of instructions, medications, Pt was receptive of discharge instructions/ teaching. Prescriptions given X 1. No special radiology studies were completed. Property :Personal belongings accompany Pt. 11:15 Patient left the ED. kc3 Signatures: Aneta Bautista MD MD ml Seth Sandoval PSA PSA cs Barney, Michael B RN RN mlb1 Shanda Paiz RN RN Belen Mccloud RN RN pml Dunaway, Emily, RN RN ead Crane, Kelsi, RN RN kc3 Fracisco Schaefer, Reg Reg mpb Ivette Bauer, Reg Reg hs2 MTDD
--- NOTE | 2016-08-10 11:17 | EDDOCDS ---
Physician Documentation [facility] Name: Dahiana Pandey Age: 89 yrs Sex: Female : 1925 Arrival Date: 08/10/2016 Time: 07:15 Bed 14 Private MD: Disposition: 08/10/16 10:26 Discharged to Home/Self Care. Impression: Other psychoactive substance dependence with withdrawal, Weakness. - Condition is Stable. - Discharge Instructions: Weakness, Benzodiazepine Withdrawal. - Prescriptions for Xanax 0.25 mg Oral Tablet - take 1 tablet by ORAL route Every night As needed MDD: 1; 5 tablet. - Medication Reconciliation, Local Pharmacy Hours form. - Follow up: Private Physician; When: 1 - 2 days. [facility]: [facility]; When: 2 - 3 days. - Problem is new. - Symptoms are unchanged. Historical: - Allergies: Benadryl; Ciprofloxacin HCl; - Home Meds: 1. temazepam 7.5 mg Oral cap 1 cap once daily has not been taking 2. atenolol 25 mg Oral tab 0.5 tab as needed 3. trazodone 50 mg Oral tab nightly has not been taking 4. hydroxyzine HCl 25 mg Oral tab 0.5 tab has not been taking 5. tramadol-acetaminophen 37.5-325 mg Oral tab 1 tabs once a day has not been taking - PMHx: Hypertension; insomnia; Sleep Apnea w/o CPAP; svt; - PSHx: Cholecystectomy; Knee surgery- Left; - Social history: Smoking status: Patient states was never smoker of tobacco. No barriers to communication noted, The patient speaks fluent Liberian, Speaks appropriately for age. - Family history: Not pertinent. - : The pt / caregiver states he / she is not on anticoagulants. Home medication list is obtained from the patient, pill bottles. - Exposure Risk Screening:: None identified. Vital Signs: 08/10 07:26 BP 148 / 70; Pulse 75; Resp 18; Temp 96.5(O); Pulse Ox 97% ; Weight 78.93 kg / 174.01 pml lbs; Height 5 ft. 5 in. (165.10 cm); Pain 0/10; 09:20 BP 187 / 82; Pulse 68; Resp 20; Pulse Ox 98% on R/A; kc3 11:14 BP 163 / 80; Pulse 64; Resp 18; Temp 97.1(O); Pulse Ox 94% on R/A; kc3 07:26 Body Mass Index 28.95 (78.93 kg, 165.10 cm) pml MDM: 07:38 Consult PFS/PSA/County Agent ordered. ml 07:38 Confirm accurate psychiatric medication list and times of last dosage ordered. ml 07:38 Detain Pt Until Medically/PFS Cleared ordered. ml 07:38 IV Saline Lock ordered. ml 07:38 Ondansetron 4 mg IVP once ordered. ml 07:38 LORazepam 1 mg IVP once ordered. ml 07:38 NS 0.9% 500 ml IV at bolus once ordered. ml 07:39 Acetaminophen Level Ordered. EDMS 07:39 Basic Metabolic Profile Ordered. EDMS 07:39 Complete Blood Count Ordered. EDMS 07:39 Ethyl Alcohol (ethanol) Ordered. EDMS 07:39 Liver Profile Ordered. EDMS 07:39 Salicylate Level Ordered. EDMS 07:39 Thyroid Stimulating Hormone Ordered. EDMS 08:36 Financial registration complete. mpb 09:00 [facility] Payment Agreement was scanned into [employer] and attached to record. mpb 09:45 Acetaminophen Level Reviewed. ml 09:45 Salicylate Level Reviewed. ml 09:45 Basic Metabolic Profile Reviewed. ml 09:45 Complete Blood Count Reviewed. ml 09:45 Ethyl Alcohol (ethanol) Reviewed. ml 09:45 Liver Profile Reviewed. ml 09:45 Thyroid Stimulating Hormone Reviewed. ml 10:23 Consult PFS/PSA/County Agent complete. kc3 10:26 PSA Outpatient Referrals was scanned into [employer] and attached to record. cs Administered Medications: 08:25 Drug: Ondansetron 4 mg [ondansetron HCl 2 mg/mL intravenous solution (2 mL)] Route: mlb1 IVP; Site: left hand; 08:25 Drug: LORazepam 1 mg [lorazepam 2 mg/mL injection solution (0.5 mL)] Route: IVP; Site: mlb1 left hand; 08:25 Drug: NS 0.9% 500 ml [sodium chloride 0.9 % injection solution] Route: IV; Rate: bolus; mlb1 Site: left hand; 09:30 Follow up: IV Status: Completed infusion kc3 Signatures: Dispatcher [employer] EDMS Aneta Bautista MD MD ml Sharlow, Charlie, PSA PSA cs Belen KempRN RN pml Rachel Juan RN RN kc3 Fracisco Schaefer, Reg Reg mpb Fracisco Mckeon RN mlb1 The chart was reviewed and I authenticate all verbal orders and agree with the evaluation and treatment provided.Corrections: (The following items were deleted from the chart) 10:25 07:39 DRUG EVAL TOXICOLOGY ED ONLY+LAB ordered. EDMS EDMS Attachments: 09:00 [facility] Payment Agreement mpb MTDD
--- NOTE | 2016-08-12 12:16 | EDDOCDS ---
Physician Documentation [facility] Name: Dahiana Pandey Age: 89 yrs Sex: Female : 1925 Arrival Date: 08/10/2016 Time: 07:15 Bed 14 Private MD: Disposition: 08/10/16 10:26 Discharged to Home/Self Care. Impression: Other psychoactive substance dependence with withdrawal, Weakness. - Condition is Stable. - Discharge Instructions: Weakness, Benzodiazepine Withdrawal. - Prescriptions for Xanax 0.25 mg Oral Tablet - take 1 tablet by ORAL route Every night As needed MDD: 1; 5 tablet. - Medication Reconciliation, Local Pharmacy Hours form. - Follow up: Private Physician; When: 1 - 2 days. [facility]; When: 2 - 3 days. - Problem is new. - Symptoms are unchanged. Historical: - Allergies: Benadryl; Ciprofloxacin HCl; - Home Meds: 1. temazepam 7.5 mg Oral cap 1 cap once daily has not been taking 2. atenolol 25 mg Oral tab 0.5 tab as needed 3. trazodone 50 mg Oral tab nightly has not been taking 4. hydroxyzine HCl 25 mg Oral tab 0.5 tab has not been taking 5. tramadol-acetaminophen 37.5-325 mg Oral tab 1 tabs once a day has not been taking - PMHx: Hypertension; insomnia; Sleep Apnea w/o CPAP; svt; - PSHx: Cholecystectomy; Knee surgery- Left; - Social history: Smoking status: Patient states was never smoker of tobacco. No barriers to communication noted, The patient speaks fluent Georgian, Speaks appropriately for age. - Family history: Not pertinent. - : The pt / caregiver states he / she is not on anticoagulants. Home medication list is obtained from the patient, pill bottles. - Exposure Risk Screening:: None identified. Vital Signs: 08/10 07:26 BP 148 / 70; Pulse 75; Resp 18; Temp 96.5(O); Pulse Ox 97% ; Weight 78.93 kg / 174.01 pml lbs; Height 5 ft. 5 in. (165.10 cm); Pain 0/10; 09:20 BP 187 / 82; Pulse 68; Resp 20; Pulse Ox 98% on R/A; kc3 11:14 BP 163 / 80; Pulse 64; Resp 18; Temp 97.1(O); Pulse Ox 94% on R/A; kc3 07:26 Body Mass Index 28.95 (78.93 kg, 165.10 cm) pml MDM: 07:38 Consult PFS/PSA/Grout Machine Tender ordered. ml 07:38 Confirm accurate psychiatric medication list and times of last dosage ordered. ml 07:38 Detain Pt Until Medically/PFS Cleared ordered. ml 07:38 IV Saline Lock ordered. ml 07:38 Ondansetron 4 mg IVP once ordered. ml 07:38 LORazepam 1 mg IVP once ordered. ml 07:38 NS 0.9% 500 ml IV at bolus once ordered. ml 07:39 Acetaminophen Level Ordered. EDMS 07:39 Basic Metabolic Profile Ordered. EDMS 07:39 Complete Blood Count Ordered. EDMS 07:39 Ethyl Alcohol (ethanol) Ordered. EDMS 07:39 Liver Profile Ordered. EDMS 07:39 Salicylate Level Ordered. EDMS 07:39 Thyroid Stimulating Hormone Ordered. EDMS 08:36 Financial registration complete. mpb 09:00 [facility] [place] Agreement was scanned into [employer] and attached to record. mpb 09:45 Acetaminophen Level Reviewed. ml 09:45 Salicylate Level Reviewed. ml 09:45 Basic Metabolic Profile Reviewed. ml 09:45 Complete Blood Count Reviewed. ml 09:45 Ethyl Alcohol (ethanol) Reviewed. ml 09:45 Liver Profile Reviewed. ml 09:45 Thyroid Stimulating Hormone Reviewed. ml 10:23 Consult PFS/PSA/Grout Machine Tender complete. kc3 10:26 PSA Outpatient Referrals was scanned into [employer] and attached to record. cs 18:49 T-Sheet-- Draft Copy was scanned into [employer] and attached to record. klr Administered Medications: 08:25 Drug: Ondansetron 4 mg [ondansetron HCl 2 mg/mL intravenous solution (2 mL)] Route: mlb1 IVP; Site: left hand; 08:25 Drug: LORazepam 1 mg [lorazepam 2 mg/mL injection solution (0.5 mL)] Route: IVP; Site: mlb1 left hand; 08:25 Drug: NS 0.9% 500 ml [sodium chloride 0.9 % injection solution] Route: IV; Rate: bolus; mlb1 Site: left hand; 09:30 Follow up: IV Status: Completed infusion kc3 Signatures: Dispatcher [employer] ED[employer]emours Foundationg-Aneta Abdul MD MD ml Seth Sandoval, LINA PSA cs Belen KempRN RN Rachel Jones RN RN kc3 Fracisco Schaefer, Kai Reg mpVerónica Eason Michael B RN mlb1 The chart was reviewed and I authenticate all verbal orders and agree with the evaluation and treatment provided.Corrections: (The following items were deleted from the chart) 10: 07:39 DRUG EVAL TOXICOLOGY ED ONLY+LAB ordered. EDMS EDMS Attachments: 09:00 [facility] Payment Agreement mpb 18:49 T-Sheet-- Draft Copy klr Chart Complete MTDD
--- NOTE | 2016-08-12 12:17 | EDDOCDS ---
Physician Documentation [facility] Name: Dahiana Pandey Age: 89 yrs Sex: Female : 1925 Arrival Date: 08/10/2016 Time: 07:15 Bed 14 Private MD: Disposition: 08/10/16 10:26 Discharged to Home/Self Care. Impression: Other psychoactive substance dependence with withdrawal, Weakness. - Condition is Stable. - Discharge Instructions: Weakness, Benzodiazepine Withdrawal. - Prescriptions for Xanax 0.25 mg Oral Tablet - take 1 tablet by ORAL route Every night As needed MDD: 1; 5 tablet. - Medication Reconciliation, Local Pharmacy Hours form. - Follow up: Private Physician; When: 1 - 2 days. Follow [facility]: [facility]; When: 2 - 3 days. - Problem is new. - Symptoms are unchanged. Historical: - Allergies: Benadryl; Ciprofloxacin HCl; - Home Meds: 1. temazepam 7.5 mg Oral cap 1 cap once daily has not been taking 2. atenolol 25 mg Oral tab 0.5 tab as needed 3. trazodone 50 mg Oral tab nightly has not been taking 4. hydroxyzine HCl 25 mg Oral tab 0.5 tab has not been taking 5. tramadol-acetaminophen 37.5-325 mg Oral tab 1 tabs once a day has not been taking - PMHx: Hypertension; insomnia; Sleep Apnea w/o CPAP; svt; - PSHx: Cholecystectomy; Knee surgery- Left; - Social history: Smoking status: Patient states was never smoker of tobacco. No barriers to communication noted, The patient speaks fluent Tongan, Speaks appropriately for age. - Family history: Not pertinent. - : The pt / caregiver states he / she is not on anticoagulants. Home medication list is obtained from the patient, pill bottles. - Exposure Risk Screening:: None identified. Vital Signs: 08/10 07:26 BP 148 / 70; Pulse 75; Resp 18; Temp 96.5(O); Pulse Ox 97% ; Weight 78.93 kg / 174.01 pml lbs; Height 5 ft. 5 in. (165.10 cm); Pain 0/10; 09:20 BP 187 / 82; Pulse 68; Resp 20; Pulse Ox 98% on R/A; kc3 11:14 BP 163 / 80; Pulse 64; Resp 18; Temp 97.1(O); Pulse Ox 94% on R/A; kc3 07:26 Body Mass Index 28.95 (78.93 kg, 165.10 cm) pml MDM: 07:38 Consult PFS/PSA/Restaurant Worker ordered. ml 07:38 Confirm accurate psychiatric medication list and times of last dosage ordered. ml 07:38 Detain Pt Until Medically/PFS Cleared ordered. ml 07:38 IV Saline Lock ordered. ml 07:38 Ondansetron 4 mg IVP once ordered. ml 07:38 LORazepam 1 mg IVP once ordered. ml 07:38 NS 0.9% 500 ml IV at bolus once ordered. ml 07:39 Acetaminophen Level Ordered. EDMS 07:39 Basic Metabolic Profile Ordered. EDMS 07:39 Complete Blood Count Ordered. EDMS 07:39 Ethyl Alcohol (ethanol) Ordered. EDMS 07:39 Liver Profile Ordered. EDMS 07:39 Salicylate Level Ordered. EDMS 07:39 Thyroid Stimulating Hormone Ordered. EDMS 08:36 Financial registration complete. mpb 09:00 [facility] [place] Payment Agreement was scanned into [employer] and attached to record. mpb 09:45 Acetaminophen Level Reviewed. ml 09:45 Salicylate Level Reviewed. ml 09:45 Basic Metabolic Profile Reviewed. ml 09:45 Complete Blood Count Reviewed. ml 09:45 Ethyl Alcohol (ethanol) Reviewed. ml 09:45 Liver Profile Reviewed. ml 09:45 Thyroid Stimulating Hormone Reviewed. ml 10:23 Consult PFS/PSA/Restaurant Worker complete. kc3 10:26 PSA Outpatient Referrals was scanned into [employer] and attached to record. cs 18:49 T-Sheet-- Draft Copy was scanned into [employer] and attached to record. klr Administered Medications: 08:25 Drug: Ondansetron 4 mg [ondansetron HCl 2 mg/mL intravenous solution (2 mL)] Route: mlb1 IVP; Site: left hand; 08:25 Drug: LORazepam 1 mg [lorazepam 2 mg/mL injection solution (0.5 mL)] Route: IVP; Site: mlb1 left hand; 08:25 Drug: NS 0.9% 500 ml [sodium chloride 0.9 % injection solution] Route: IV; Rate: bolus; mlb1 Site: left hand; 09:30 Follow up: IV Status: Completed infusion kc3 Signatures: Dispatcher [employer] [facility] Abdul MD MD ml Seth Sandoval, LINA PSA cs Belen KempRN RN Rachel Jones RN RN kc3 Fracisco Schaefer, Kai Reg mpVerónica Eason Michael B RN mlb1 The chart was reviewed and I authenticate all verbal orders and agree with the evaluation and treatment provided.Corrections: (The following items were deleted from the chart) 10: 07:39 DRUG EVAL TOXICOLOGY ED ONLY+LAB ordered. EDMS EDMS Attachments: 09:00 [facility] Payment Agreement mpb 18:49 T-Sheet-- Draft Copy klr Chart Complete MTDD
--- NOTE | 2016-08-12 12:17 | EDDOCDS ---
Nurse's Notes [facility] Name: Dahiana Pandey Age: 89 yrs Sex: Female : 1925 Arrival Date: 08/10/2016 Time: 07:15 Bed 14 Private MD: Diagnosis: Other psychoactive substance dependence with withdrawal;Weakness Presentation: 08/10 07:21 Presenting complaint: Patient states: MD Heath took patient off Xanax about 3-4 day pml ago. reports upset stomach - states she is having withdrawals, cant remember it all. states "I am sicker than a dog I need a pill to help me get off it". Adult Sepsis Screening: The patient does not have new or worsening altered mentation. Patient's respiratory rate is less than 22. Systolic blood pressure is greater than 100. Patient has a qSOFA score of 0- Negative Sepsis Screen. Suicide/Homicide risk assessment- the patient denies having any suicidal and/or homicidal ideations and does not present with any other emotional, behavioral or mental health complaints. Status: Patient is not a travel service consultant or dependent. Transition of care: patient was not received from another setting of care. 07:21 Acuity: SKYLAR Level 3 pml 07:21 Method Of Arrival: Walkin/Carried/Asstd pml Triage Assessment: 07:26 General: Appears in no apparent distress, Behavior is agitated, inappropriate for age, pml uncooperative. Pain: Denies pain. Historical: - Allergies: Benadryl; Ciprofloxacin HCl; - Home Meds: 1. temazepam 7.5 mg Oral cap 1 cap once daily has not been taking 2. atenolol 25 mg Oral tab 0.5 tab as needed 3. trazodone 50 mg Oral tab nightly has not been taking 4. hydroxyzine HCl 25 mg Oral tab 0.5 tab has not been taking 5. tramadol-acetaminophen 37.5-325 mg Oral tab 1 tabs once a day has not been taking - PMHx: Hypertension; insomnia; Sleep Apnea w/o CPAP; svt; - PSHx: Cholecystectomy; Knee surgery- Left; - Social history: Smoking status: Patient states was never smoker of tobacco. No barriers to communication noted, The patient speaks fluent Nepali, Speaks appropriately for age. - Family history: Not pertinent. - : The pt / caregiver states he / she is not on anticoagulants. Home medication list is obtained from the patient, pill bottles. - Exposure Risk Screening:: None identified. Screenin:21 Fall Risk. jjr 08:21 Screening information is obtained from the patient. Fall risk: At risk due to age, The jjr following interventions are performed due to a positive Fall Risk Screen: added to special handling. Abuse/DV Screen: The patient / caregiver reports he/she is: not in a situation that causes fear, pain or injury. Nutritional screening: No deficits noted. home support is adequate. 10:23 Advance Directives: Currently, there is a health care proxy, Dom Pandey, kc3 . 10:24 Assistance ADL's: requires no assistance with activities of daily living. kc3 Assessment: 08:20 General: Appears in no apparent distress, well nourished, well groomed, Behavior is jjr anxious. Pain: Location: right ankle and left knee Is chronic. Neurological: No deficits noted. Respiratory: Airway is patent Respiratory effort is even, unlabored, Respiratory pattern is regular. GI: Reports nausea. Derm: No deficits noted. 09:31 General: Appears in no apparent distress, comfortable, Behavior is anxious, appropriate kc3 for age, cooperative, Pt reports "I've been laying here so long, my legs are starting to twitch." Pt assisted to comfortable position in bed. . Pain: Location: left knee. Neurological: Level of Consciousness is awake, alert, obeys commands, Oriented to person, place, time. Respiratory: Respiratory effort is even, unlabored. Derm: Skin is pink, warm & dry. 10:30 General: Appears in no apparent distress, comfortable, Behavior is appropriate for age, kc3 cooperative. General: Pt given arnaud momo per request. . Pain: Location: left knee. Neurological: No deficits noted. Respiratory: Respiratory effort is even, unlabored. Derm: Skin is pink, warm & dry. 11:14 General: Appears in no apparent distress, comfortable, Behavior is appropriate for age, kc3 cooperative. Pain: Location: left knee. Neurological: Level of Consciousness is awake, alert, obeys commands, Oriented to person, place, time. Respiratory: Respiratory effort is even, unlabored. Derm: Skin is pink, warm & dry. Social Work Consult: 10:26 Social Work Note: PSA met with pt at bedside. Pt reports she was taken off her Zanex cs twice "cold [place]" by her Dr. Vides, and now he went on vacation and she is having "withdraw symptoms." Pt was not feeling well past 3 -4 days, stopped taking the medication 1 week, per Dom. Dom States he would like to see her come off the medication slowly and they will look for another doctor. 10:36 Social Work Note: Dom also stated he would like to see her have a smaller dose to cs help with the withdrawals and would in to pick her up. Pt ok ed DC plan with numbers given for family to talk to about withdrawal symptoms. Support extended. Vital Signs: 07:26 BP 148 / 70; Pulse 75; Resp 18; Temp 96.5(O); Pulse Ox 97% ; Weight 78.93 kg; Height 5 pml ft. 5 in. (165.10 cm); Pain 0/10; 09:20 BP 187 / 82; Pulse 68; Resp 20; Pulse Ox 98% on R/A; kc3 11:14 BP 163 / 80; Pulse 64; Resp 18; Temp 97.1(O); Pulse Ox 94% on R/A; kc3 07:26 Body Mass Index 28.95 (78.93 kg, 165.10 cm) [facility] Vitals: 07:26 Log In Time: August 10, 2016 at 07:16. [facility] ED Course: 07:16 Patient visited by Ivette Bauer, Reg. hs2 07:16 Patient moved to Waiting hs2 07:22 Triage Initiated pml 07:29 Patient visited by Belen Kemp RN. pml 07:29 Aneta Bautista MD is Attending Physician. ml 07:29 Patient visited by Aneta Bautista MD. ml 07:29 Patient moved to 14 pml 08:19 Acetaminophen Level Sent. jjr 08:19 Basic Metabolic Profile Sent. jjr 08:19 Complete Blood Count Sent. jjr 08:19 Ethyl Alcohol (ethanol) Sent. jjr 08:19 Liver Profile Sent. jjr 08:19 Salicylate Level Sent. jjr 08:19 Thyroid Stimulating Hormone Sent. jjr 08:20 Inserted saline lock: 22 gauge in left hand and blood collected. Labs drawn. (by ED jjr staff). Sent per order to lab. 08:21 Patient visited by Shanda Paiz RN. jjr 08:21 The patient / caregiver is instructed regarding the plan of care and ED course. jjr 09:00 [facility] Payment Agreement was scanned into [employer] (by [employer]) and attached to record. mpb 09:01 Rachel Juan,RN is Primary Nurse. kc3 09:02 Patient visited by Rachel Juan,JENNIFER. kc3 10:02 Patient visited by Janki Fong RN. ead 10:24 No procedures done that require assistance. kc3 10:26 PSA Outpatient Referrals was scanned into [employer] (by [employer]) and attached to record. cs 10:28 [facility] is Referral Physician. ml 10:50 Discontinued IV lock intact, bleeding controlled, pressure dressing applied, No kc3 redness/swelling at site. 18:49 T-Sheet-- Draft Copy was scanned into [employer] (by [employer]) and attached to record. klr Administered Medications: 08:25 Drug: Ondansetron 4 mg [ondansetron HCl 2 mg/mL intravenous solution (2 mL)] Route: mlb1 IVP; Site: left hand; 08:25 Drug: LORazepam 1 mg [lorazepam 2 mg/mL injection solution (0.5 mL)] Route: IVP; Site: mlb1 left hand; 08:25 Drug: NS 0.9% 500 ml [sodium chloride 0.9 % injection solution] Route: IV; Rate: bolus; mlb1 Site: left hand; 09:30 Follow up: IV Status: Completed infusion kc3 Order Results: Lab Order: Acetaminophen Level; SPEC'M 08/10/16 08:17 Test: ACETAMINOPHEN LEVEL; Value: < 2.0; Range: 10.0-30.0; Abnormal: Below low normal; Units: UG/ML; Status: F Lab Order: Basic Metabolic Profile; SPEC'M 08/10/16 08:17 Test: GLUCOSE, FASTING; Value: 99; Range: 83-110; Units: MG/DL; Status: F Test: BLOOD UREA NITROGEN; Value: 12; Range: 7-18; Units: MG/DL; Status: F Test: CREATININE FOR GFR; Value: 0.73; Range: 0.55-1.02; Units: MG/DL; Status: F Test: GLOMERULAR FILTRATION RATE; Value: > 60.0; Range: >32; Status: F Test: SODIUM LEVEL; Value: 136; Range: 136-145; Units: MEQ/L; Status: F Test: POTASSIUM SERUM; Value: 4.0; Range: 3.5-5.1; Units: MEQ/L; Status: F Test: CHLORIDE LEVEL; Value: 103; Range: 98-107; Units: MEQ/L; Status: F Test: CARBON DIOXIDE LEVEL; Value: 24; Range: 21-32; Units: MEQ/L; Status: F Test: ANION GAP; Value: 9; Range: 8-16; Units: MEQ/L; Status: F Test: CALCIUM LEVEL; Value: 9.1; Range: 8.8-10.2; Units: MG/DL; Status: F Test Note: ; Units are mL/min/1.73 m2 Chronic Kidney Disease Staging per NKF: Stage I & II GFR >=60 Normal to Mildly Decreased Stage III GFR 30-59 Moderately Decreased Stage IV GFR 15-29 Severely Decreased Stage V GFR <15 Very Little GFR Left ESRD GFR <15 on SUSTAIN ENGINEER Lab Order: Complete Blood Count; [facility] 08/10/16 08:17 Test: WHITE BLOOD COUNT; Value: 6.9; Range: 4.0-10.0; Units: K/mm3; Status: F Test: RED BLOOD COUNT; Value: 4.66; Range: 4.00-5.40; Units: M/mm3; Status: F Test: HEMOGLOBIN; Value: 14.2; Range: 12.0-16.0; Units: g/dl; Status: F Test: HEMATOCRIT; Value: 42.1; Range: 36.0-47.0; Units: %; Status: F Test: MEAN CORPUSCULAR VOLUME; Value: 90.3; Range: 80.0-96.0; Units: fl; Status: F Test: MEAN CORPUSCULAR HEMOGLOBIN; Value: 30.5; Range: 27.0-33.0; Units: pg; Status: F Test: MEAN CORPUSCULAR HGB CONC; Value: 33.8; Range: 32.0-36.5; Units: g/dl; Status: F Test: RED CELL DISTRIBUTION WIDTH; Value: 13.0; Range: 11.5-14.5; Units: %; Status: F Test: PLATELET COUNT, AUTOMATED; Value: 182; Range: 150-450; Units: k/mm3; Status: F Lab Order: Ethyl Alcohol (ethanol); SPEC08/10/16 08:17 Test: ETHYL ALCOHOL (ETHANOL); Value: < 0.003; Range: 0.000-0.010; Units: %; Status: F Lab Order: Liver Profile; 08/10/16 08: Test: AST/SGOT; Value: 15; Range: 15-37; Units: U/L; Status: F Test: ALT/SGPT; Value: 17; Range: 12-78; Units: U/L; Status: F Test: ALKALINE PHOSPHATASE; Value: 70; Range: 45-117; Units: U/L; Status: F Test: BILIRUBIN,TOTAL; Value: 0.7; Range: 0.2-1.0; Units: MG/DL; Status: F Test: BILIRUBIN,DIRECT; Value: 0.1; Range: 0.0-0.2; Units: MG/DL; Status: F Test: TOTAL PROTEIN; Value: 7.1; Range: 6.4-8.2; Units: GM/DL; Status: F Test: ALBUMIN; Value: 3.8; Range: 3.2-5.2; Units: GM/DL; Status: F Test: ALBUMIN/GLOBULIN RATIO; Value: 1.15; Range: 1.00-1.93; Status: F Lab Order: Salicylate Level; 08/10/16 08: Test: SALICYLATE LEVEL; Value: < 1.7; Range: 5.0-30.0; Abnormal: Below low normal; Units: MG/DL; Status: F Lab Order: Thyroid Stimulating Hormone; SPEC'08/10/16 08:17 Test: THYROID STIMULATING HORMONE; Value: 3.670; Range: 0.358-3.740; Units: uIU/ML; Status: F Outcome: 10:26 Discharge ordered by Provider. ml 11:15 Discharge Assessment: Patient awake, alert and oriented x 3. No cognitive and/or kc3 functional deficits noted. Patient verbalized understanding of disposition instructions. patient administered narcotics - yes. Pt provided with safe discharge. The following High Risk Discharge criteria are identified: None. Discharged to home via wheelchair, with family. Condition: stable. Discharge instructions given to patient, family, Instructed on discharge instructions, follow up and referral plans. medication usage, Demonstrated understanding of instructions, medications, Pt was receptive of discharge instructions/ teaching. Prescriptions given X 1. No special radiology studies were completed. Property :Personal belongings accompany Pt. 11:15 Patient left the ED. kc3 Signatures: Aneta Bautista MD MD ml Seth Sandoval, LINA PSA Fracisco Alcantara RN RN mlb1 Shanda Paiz RN RN Belen Mccloud RN RN Janki SpauldingRN RN Rachel Matta RN RN kc3 Fracisco Schaefer, Reg Reg mpb Ivette Bauer, Reg Reg hs2 Verónica Suarez Chart Complete MTDD
== END 2016-08-10 11:15 | disposition home or self-care (01) ==
LOC: M ED 07:15
DX: F13.239 Sedative, hypnotic or anxiolytic dependence with withdrawal, unspecified (principal); R53.1 Weakness; I10 Essential (primary) hypertension; G47.00 Insomnia, unspecified; G47.30 Sleep apnea, unspecified; Z90.49 Acquired absence of other specified parts of digestive tract; Z79.899 Other long term (current) drug therapy; Z88.1 Allergy status to other antibiotic agents; Z88.8 Allergy status to other drugs, medicaments and biological substances
CPT/HCPCS: 36415; 80048; 80076; 84443; 85027; 96361; 96374; 96375; 99284; G0480; J2060; J2405

== ENCOUNTER → 2016-09-15 | Outpatient (REF) | payer MEDICARE, OTHER | LOC: M LAB REF 13:01 | PROVIDERS: ATTEND Internal Medicine | DX: D51.9 Vitamin B12 deficiency anemia, unspecified (principal) ==

== ENCOUNTER → 2016-10-15 | Outpatient (CLI) | payer MEDICARE, OTHER ==
--- NOTE | 2016-10-15 09:41 | REP ---
Abdominal aortic sonography: History: Abdominal aortic aneurysm. Comparison CT study of the abdomen is from October 10, 2015. Comparison sonography January 15, 2014. 2014 ultrasound study showed an abdominal aortic aneurysm measuring 4.[address] study showed AP dimension of the aneurysm of 5.0 cm by my measurement. Sonographic findings: The abdominal aorta measures 2.5 x 2.2 cm in AP by transverse dimension respectively at the diaphragmatic hiatus. There is an infrarenal mid abdominal aortic aneurysm measuring 4.9 cm AP by today's ultrasound by 4.7 cm transverse. 5 cm of aortic length is aneurysmally dilated. The right and left common iliac arteries are not dilated measuring 0.9 cm in AP dimension bilaterally. The distal aorta just before the bifurcation measures 2.7 cm in AP by 1.8 cm transverse. Impression: 4.9 cm infrarenal abdominal aortic aneurysm. This is felt to be unchanged from the most recent imaging CT study October 10, 2015. Signed by Yazan Avila MD 10/15/2016 01:38 P
== END ==
LOC: M RAD 08:50
PROVIDERS: ATTEND Surgery Vascular Surgery
DX: I71.4 Abdominal aortic aneurysm, without rupture (principal)

== ENCOUNTER 2017-01-10 21:25 | Emergency (ER) | payer MEDICARE, OTHER ==
[2017-01-10] MEDS ORDERED: METOCLOPRAMIDE 10 MG TAB PO ONE (21:45)
[2017-01-10] MEDS ORDERED: diphenhydrAMINE 25 MG CAP PO ONE (21:45)
[2017-01-10] MEDS ORDERED: MECLIZINE 25 MG TABLET PO ONE (21:45)
[2017-01-10] MEDS ORDERED: TRAZ50TA11 (21:46)
[2017-01-10] MEDS ORDERED: ALPR0.5T3 (21:46)
[2017-01-10] MEDS ORDERED: ATEN25TA (21:46)
[2017-01-10] MEDS ORDERED: BENZTROPINE MESYLATE 2MG/2ML VIAL IM ONE (22:00)
[2017-01-10] MEDS ORDERED: PRED20TA PO (23:20)
[2017-01-10] MEDS ORDERED: MECL-68 PO (23:20)
[2017-01-11 00:38] VITALS: BP 170/98
== END 2017-01-11 00:39 | disposition home or self-care (01) ==
LOC: EDBD 21:25 → M ED 21:25
DX: H83.03 Labyrinthitis, bilateral (principal); J32.9 Chronic sinusitis, unspecified

== ENCOUNTER 2017-04-11 10:19 | Emergency (ER) | payer MEDICARE, OTHER ==
[~2017-04-11] VITALS: Ht 165.1 cm; Wt 80.9 kg
[~2017-04-11 10:19] MED LIST: ALPR0.5T3; ATEN25TA; MECL-68 PO; PRED20TA PO; TRAZ50TA11
[2017-04-11 10:20] VITALS: BP 158/78
[2017-04-11] MEDS ORDERED: ACET30TAB PO (11:31)
[2017-04-11] MEDS ORDERED: TRAM-533 PO (11:42)
== END 2017-04-11 11:47 | disposition home or self-care (01) ==
LOC: M ED 10:19
DX: G50.0 Trigeminal neuralgia (principal); I10 Essential (primary) hypertension; G47.30 Sleep apnea, unspecified; Z79.899 Other long term (current) drug therapy; Z88.8 Allergy status to other drugs, medicaments and biological substances

== ENCOUNTER 2017-05-13 10:26 | Emergency (ER) | payer MEDICARE, OTHER ==
[~2017-05-13] VITALS: Ht 165.1 cm; Wt 80.0 kg
[~2017-05-13 10:26] MED LIST changes: +ACET30TAB PO; +TRAM-533 PO
[2017-05-13 10:27] VITALS: BP 173/83
[2017-05-13] MEDS ORDERED: ROZE8TAB16 (10:51)
[2017-05-13] MEDS ORDERED: traMADol 50 MG TAB PO ONE (11:45)
--- NOTE | 2017-05-13 12:06 | REP ---
CT Head without contrast HISTORY: Right side pain COMPARISON: 03/26/2010 Areas of decreased attenuation are present in the periventricular white matter. This represents small-vessel ischemic disease There is no intraparenchymal hemorrhage, acute infarct, mass or midline shift. T the ventricular system and cortical sulci as well as subarachnoid space in the posterior fossa are dilated consistent with mild volume loss. There is no extra cerebral collection. There is no fracture. The visualized sinuses are clear. IMPRESSION: 1. Small vessel ischemic disease. 2. Mild volume loss. Signed by Avtar Walls MD 05/13/2017 11:57 A
[2017-05-13] MEDS ORDERED: PRED20TA PO (12:45)
== END 2017-05-13 13:09 | disposition home or self-care (01) ==
LOC: M ED 10:26
DX: G50.0 Trigeminal neuralgia (principal); R90.82 White matter disease, unspecified; I10 Essential (primary) hypertension; F41.9 Anxiety disorder, unspecified; I47.1 Supraventricular tachycardia; Z88.8 Allergy status to other drugs, medicaments and biological substances